=== PATIENT | female | born 1990 | race Caucasian/White ===

== ENCOUNTER 2018-05-31 08:49 | Outpatient (CLI) | payer OTHER, SELFPAY ==
[2018-05-31 09:16] LABS: HCT 35.5 % (36.0-46.0); Mean Corp. HGB Concentration 33.8 g/dL (32.0-36.0); Mean Corpuscular Hemoglobin 30.2 pg (27.0-33.0); Mean Corpuscular Volume 89.4 fL (80-95); Mean Platelet Volume 9.7 fL (8.0-11.0); Platelet Count 247 x1000/uL (130-400); RBC 3.97 m/cumm (4.00-5.20); RBC Distribution Width 12.9 % (11.7-14.6); White Blood Cell Count 10.44 k/cumm (4.4-10.8)
[2018-05-31 09:26] LABS: Glucose,1 Hr (Glucola) 169 mg/dL (80-140)
== END 2018-05-31 09:09 ==
PROVIDERS: PCP Family Medicine; Visit Provider Advanced Practice Midwife
DX: Z34.82 Encounter for supervision of other normal pregnancy, second trimester (principal); Z3A.28 28 weeks gestation of pregnancy
CPT/HCPCS: 36415; 82950; 85027

== ENCOUNTER 2018-06-04 07:56 | Outpatient (CLI) | payer OTHER, SELFPAY ==
[2018-06-04 10:01] LABS: Glucose 1 Hour 161 mg/dL
[2018-06-04 11:45] LABS: Glucose 3 Hour 115 mg/dL
== END 2018-06-04 08:16 ==
PROVIDERS: PCP Family Medicine; Visit Provider Advanced Practice Midwife
DX: Z68.35 Body mass index [BMI] 35.0-35.9, adult (principal); O99.213 Obesity complicating pregnancy, third trimester; Z34.83 Encounter for supervision of other normal pregnancy, third trimester
CPT/HCPCS: 36410; 82951

== ENCOUNTER 2018-06-25 15:41 | Outpatient (CLI) | payer OTHER, SELFPAY ==
[2018-06-25 18:54] LABS: ALT 57 U/L (12-78); AST 28 U/L (15-37); Albumin 2.6 g/dL (3.4-5.0); Alkaline Phosphatase 111 U/L (46-116); Bilirubin, Direct 0.05 mg/dL (0.00-0.20); Bilirubin, Total 0.2 mg/dL (0.2-1.0); Total Protein 6.7 g/dL (6.4-8.2)
[2018-06-26 16:26] LABS: Bile Acids, Total 3 mcmol/L (<=10)
== END 2018-06-25 16:01 ==
PROVIDERS: PCP Family Medicine; Visit Provider Advanced Practice Midwife
DX: Z34.93 Encounter for supervision of normal pregnancy, unspecified, third trimester (principal)
CPT/HCPCS: 36415; 80076; 82239

== ENCOUNTER 2018-07-26 12:06 | Outpatient (REF) | payer OTHER, SELFPAY | END 2018-07-26 12:26 | LOC: LBN 12:06 | PROVIDERS: PCP Family Medicine; Visit Provider Nurse Practitioner | DX: Z34.93 Encounter for supervision of normal pregnancy, unspecified, third trimester (principal); Z36.85 Encounter for antenatal screening for Streptococcus B | CPT/HCPCS: 87081 ==

== ENCOUNTER 2018-08-03 22:49 | Inpatient (IN) | payer OTHER, SELFPAY ==
[2018-08-03 23:32] LABS: ROM Plus Positive
[2018-08-04 01:31] LABS: HCT 38.1 % (36.0-46.0); HGB 12.9 g/dL (12.0-15.5); Mean Corp. HGB Concentration 33.9 g/dL (32.0-36.0); Mean Corpuscular Hemoglobin 29.7 pg (27.0-33.0); Mean Corpuscular Volume 87.6 fL (80-95); Mean Platelet Volume 11.3 fL (8.0-11.0); Platelet Count 195 x1000/uL (130-400); RBC 4.35 m/cumm (4.00-5.20); RBC Distribution Width 13.2 % (11.7-14.6); White Blood Cell Count 12.34 k/cumm (4.4-10.8)
[2018-08-04] MEDS: Lactated Ringers 1,000 ML 125 ML IV (09:50)
--- NOTE | 2018-08-04 11:04 | W.PM.OP ---
Date of service: 08/04/18 Time of Service: 11:05 Operative Note DATE OF PROCEDURE: 08/04/18 PRE-OP DIAGNOSIS: Arrest of Descent POST-OP DIAGNOSIS: same PROCEDURE: VAVD KRISTIAN 28 yo G1 37.3 weeks presented with PROM progressed in labor to fully called when patient had been pushing x 3 hours CNM began Pitocin augmentation at this point Assessed patient FUlly dilated +2LOT 's head rotated to DOA R/B/A VAVD vs PCS discussed with patient verbal consent obtained bladder drained with 16 FR howard of 500 cc 2% lidocaine perineal block of 10 cc vacuum applied with gentle downward traction and maternal pushing infant was delivered atraumatically shoulders and body delivered with ease nuchal cord x 2 tight reduced after delivery cord clamped x 2 cut infant to mother's abdomen cord blood obtained placenta delivered intact 3 vessels- spontaneously fundus firm with massage, pitocin and 800mg cytotec per rectum 0-vicryl repair of second degree laceration in usual fashion sponge and needle count correct viable male infant weight pending skin to skin + cleft lip -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
--- NOTE | 2018-08-04 11:15 | ROE_ITS ---
Date of service: 08/04/18 Time of Service: 11:05 Operative Note DATE OF PROCEDURE: 08/04/18 PRE-OP DIAGNOSIS: Arrest of Descent POST-OP DIAGNOSIS: same PROCEDURE: VAVD KRISTIAN 28 yo G1 37.3 weeks presented with PROM progressed in labor to fully called when patient had been pushing x 3 hours CNM began Pitocin augmentation at this point Assessed patient FUlly dilated +2LOT 's head rotated to DOA R/B/A VAVD vs PCS discussed with patient verbal consent obtained bladder drained with 16 FR howard of 500 cc 2% lidocaine perineal block of 10 cc vacuum applied with gentle downward traction and maternal pushing infant was delivered atraumatically shoulders and body delivered with ease nuchal cord x 2 tight reduced after delivery cord clamped x 2 cut infant to mother's abdomen cord blood obtained placenta delivered intact 3 vessels- spontaneously fundus firm with massage, pitocin and 800mg cytotec per rectum 0-vicryl repair of second degree laceration in usual fashion sponge and needle count correct viable male infant weight pending skin to skin + cleft lip -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
[2018-08-04] MEDS: Lidocaine 2% Pres-Free 5 ML VIAL IJ (13:00)
[2018-08-04] MEDS: Ibuprofen 600 MG TAB PO (16:05)
[2018-08-04] MEDS: Acetaminophen 325 MG TAB 650 MG PO (16:05)
[2018-08-04] MEDS: Hamamelis Leaf/Glycerin 100 EACH BOX PR (16:10)
[2018-08-05 07:20] LABS: HCT 29.4 % (36.0-46.0); HGB 9.7 g/dL (12.0-15.5); Mean Corpuscular Hemoglobin 29.5 pg (27.0-33.0); Mean Corpuscular Volume 89.4 fL (80-95); Mean Platelet Volume 11.2 fL (8.0-11.0); Platelet Count 201 x1000/uL (130-400); RBC 3.29 m/cumm (4.00-5.20); RBC Distribution Width 13.4 % (11.7-14.6); White Blood Cell Count 15.19 k/cumm (4.4-10.8)
[2018-08-05] MEDS: Ibuprofen 600 MG TAB PO (11:44)
[2018-08-05] MEDS: Docusate Sodium 100 MG CAP PO (11:44)
[2018-08-05] MEDS: Acetaminophen 325 MG TAB 650 MG PO (11:45)
[2018-08-06] MEDS: Docusate Sodium 100 MG CAP PO ×3 (00:47→17:20)
[2018-08-06] MEDS: Ibuprofen 600 MG TAB PO ×3 (00:48→17:20)
[2018-08-06] MEDS: Acetaminophen 325 MG TAB 650 MG PO ×2 (00:48→17:19)
== END 2018-08-06 18:00 | disposition home or self-care (01) | DRG 807 ==
PROVIDERS: Obstetrics & Gynecology; Admitting Provider Nurse Practitioner; PCP Family Medicine; Visit Provider Advanced Practice Midwife
DX: O42.02 Full-term premature rupture of membranes, onset of labor within 24 hours of rupture (principal); Z37.0 Single live birth; Z3A.37 37 weeks gestation of pregnancy; O62.1 Secondary uterine inertia; O75.81 Maternal exhaustion complicating labor and delivery; O76 Abnormality in fetal heart rate and rhythm complicating labor and delivery; O63.1 Prolonged second stage (of labor); O69.1XX0 Labor and delivery complicated by cord around neck, with compression, not applicable or unspecified; O99.214 Obesity complicating childbirth; E66.9 Obesity, unspecified
CPT/HCPCS: 36415; 84112; 85027; 86850; 86900; 86901; J3490

== ENCOUNTER 2019-04-30 01:13 | Emergency (ER) | payer OTHER, SELFPAY ==
[2019-04-30] VITALS (8 sets, daily range): BP systolic 124–138; BP diastolic 61–80; PULSE 84–105; RESP 18; TEMP 36.2; O2SAT 97–100
--- NOTE | 2019-04-30 01:42 | ED.GENADUL_ITS ---
Discharge Plan Disposition Patient Disposition: HOME Condition: Good Discharge Details Chief Complaint: Abd Prob Clinical Impression: Biliary colic Primary Care Provider: Rosie Ayala ED Provider: Carmine Guidry Home Meds and New Rx's Prescriptions: No Action (DME) breast pump device See Dose Instructions .ROUTE .MEDSUPPLY Qty: 1 RF: 0 Nexplanon 68 mg implant 1 implant SBD ONCE RF: 0 multivitamin Tablet 1 tab PO DAILY RF: 0 sertraline 50 mg Tablet 50 mg PO DAILY RF: 0 Discharge Instructions Instructions: Biliary Colic (ED), Abdominal Pain (ED) Additional Instructions: At this time your CT scan shows no concerning abnormality per radiology requiring surgery. Your labs are very normal. I feel that your symptoms are secondary to biliary colic as we discussed together. It is very important that you avoid any greasy foods, fatty foods, dairy, or cheese. Please also avoid any spicy foods, tomato-based products or citrus-based products. Please stick with a bland diet for the time being. If you do develop return of your pain please take 600 mg of ibuprofen every 6 hours. Please follow-up with your primary care provider as soon as possible for reassessment. If you notice any worsening of your symptoms, or any new symptoms such as vomiting, diarrhea, fever, chills, shortness of breath, chest pain, numbness, weakness, or fainting , please return immediately to the emergency department for reevaluation. As always, it was a pleasure participating in your medical care today. Referrals: Rosie Ayala [Primary Care Provider] - Medical Decision Making This is a pleasant 29-year-old female who presents today for evaluation of right upper quadrant epigastric pain for the last 4 hours. She did take some Tums at home but this change nothing. She has nausea but no vomiting. Exam demonstrates notable right upper quadrant tenderness. Bedside limited portable ultrasound demonstrates evidence of slightly thickened gallbladder wall roughly 4 to 5 mm. Gallbladder is not overly distended. Concerning pain and Rodgers's point. Differential includes biliary colic, cholecystitis, or mild reflux. We will give GI cocktail, Toradol, morphine fluids, and a CT scan to further evaluate the abdomen, and reassess 2:54 AM Laboratory work-up is notably benign, no white count, normal renal function, normal bilirubin level. Normal AST and ALT. Urinalysis negative for any evidence of infection. CT scan per virtual radiology is negative for acute process. I did contact Dr. Downing specifically reviewed the gallbladder, he denies any significant concerning findings suggestive of acute cholecystitis. On reassessment the patient feels much better, she states that her pain is completely gone her symptoms have resolved. With a benign laboratory work-up, negative CT scan findings, I feel that symptoms are more likely from contracted gallbladder and biliary colic rather than actual acute cholecystitis. At this time with the patient's resolution of symptoms and normal labs I feel she can be safely discharged home but will require close follow-up with her PCP. I did discuss the importance of dietary changes for biliary colic, as well as NSAID use, and as well as reasons and symptoms which to immediately return. I have extensively reviewed the treatment plan and discharge instructions with the patient. I have addressed all patient concerns at this time. The patient was made aware of what symptoms to monitor for that would warrant a return to the emergency department. Discussed the plan with the patient, they demonstrate verbal understanding and agreement with our assessment and plan at this time. FINDINGS: Liver: No suspicious lesions. Gallbladder and bile ducts: No acute or concerning findings. Pancreas: Unremarkable. No ductal dilation. Spleen: No suspicious lesions. Adrenals: Unremarkalbe. No suspicious mass. Kidneys and ureters: Unremarkable. No hydro. No suspicious lesions. Stomach and bowel: Unremarkable. No obstruction or inflammatory changes. Appendix: No evidence of appendicitis. Intraperitoneal space: No free air. No significant fluid collection. Vasculature: Unremarkable. No acute findings Lymph nodes: Unremarkable. Bladder: Unremarkable as visualized. Reproductive: Unremarkable as visualized. Bones/joints: No acute fracture. No dislocation. Soft tissues: Unremarkable. IMPRESSION: No acute findings. Dictated and Authenticated by: Eulalio Downing MD. Ordering:KAITLYNN Lou MD HPI General Date/Time Provider Initiated Documentation: 04/30/19 01:20 . HPI Narrative: This is a pleasant 29-year-old female with no significant past medical history who presents today for evaluation of epigastric pain for the last 4 hours. Pain is in the epigastric and right upper quadrant region. Started not too long after dinner earlier tonight. She describes it as an achy nauseous stabbing and burning-like sensation in that region. She did take some Tums earlier today but this gave no improvement of her symptomatology. She states that she feels that the pain does go to her back slightly. Or so between her shoulder blades. She denies any tearing or ripping sensation. She denies any history of cardiac disease. She denies any shortness of breath or chest pain or chest heaviness. She denies any vomiting but does admit to notable nausea. She has no other complaints at this time. She denies any previous history of symptoms like this Related Data Home Medications Medication Instructions Recorded Confirmed breast pump #1 each 06/14/18 09/25/18 etonogestrel 68 mg subdermal 1 implant SBD ONCE 09/27/18 04/30/19 implant multivitamin 1 tab PO DAILY 04/30/19 04/30/19 sertraline 50 mg PO DAILY 04/30/19 04/30/19 Previous Rx's Medication Instructions Recorded breast pump #1 each 06/14/18 Allergies Allergy/AdvReac Type Severity Reaction Status Date / Time No Known Allergies Allergy Unverified 04/30/19 01:27 General Stated Complaint: Abd Prob CHRISTINA: 3 Review of Systems Review of Systems All systems reviewed & are unremarkable except as noted in HPI and below PFSH Medical History (Updated 05/31/18 @ 09:32 by Chel Bowser RN) Hypertension Family History (Updated 01/15/18 @ 16:24 by Nina Santoro MD) Other Diabetes Social History (Updated 05/30/18 @ 09:49 by Iraida Bond LPN) Smoking/Tobacco Use Status: Never Alcohol Intake: current Alcohol Intake frequency: a few times a month Details: none pt. Drug use: Never Substance use type: does not use Adopted: No Foster care: No Household members: spouse Pets and animals: Yes (2 cats) What is your relationship status?: Panel score (0-1 are the most socially isolated patients): 1 Analisa/Mandaeism: evangelica Special analisa needs: No Do you feel safe at home: Yes Do you feel safe in your relationship?: Yes History History 1 Para 1 Hx # Term Pregnancies 1 Multiple births 0 Hx # Pregnancies 0 Ectopic pregnancies 0 AB induced 0 Hx Number of Living Children 1 AB spontaneous 0 Past Pregnancies Del. Date GA/Weeks # Outcome Route Wgt Sex Labor Lgth Anesthes ia Location Prov Complic 08/04/18 37 No Successful vaginal 3.147 kg Male 12 hours 28 minutes Evette Huang CNM Exam Narrative Exam Narrative: 1.Const: Well-nourished, Well-developed, appearing stated age 2.Eyes: PERRL, no conjunctival injection, and symmetrical lids. 3.ENT: Atraumatic external nose and ears. Moist MM. Neck: Symmetric, trachea midline, No thyromegaly. 4.CVS: +S1/S2, No murmurs or gallops. Peripheral pulses 2+ and equal in all extremities. Brisk capillary refill in all extremities. 5.RESP: Unlabored respiratory effort. Clear to auscultation bilaterally. No wheezes rales or rhonchi 6.GI: Soft, nondistended, notable tenderness in the right upper quadrant mild tenderness in the epigastric region. No pain in the right lower quadrant. Positive Rodgers sign. No pain at McBurney's point. No CVA tenderness. Bedside limited ultrasound demonstrates gallbladder wall 4 to 5 mm in thickness. No gallstones or sludge 7.MSK: Normocephalic/Atraumatic, Extremities w/o deformity or ttp No cyanosis or clubbing, Normal movement of all extremities 8.Skin: Warm, Dry. No rashes or lesions. 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 Sensation grossly intact, no focal neurologic deficits. 10.Psych: (AAO) x3. Appropriate mood and affect Course Vital Signs Temperature 36.2 C L 04/30/19 01:19 Pulse 105 H 04/30/19 01:19 Respiratory Rate 18 04/30/19 01:19 Blood Pressure 138/80 04/30/19 01:19 Pulse Oximetry 100 04/30/19 01:19 Temperature 36.2 C L 04/30/19 01:19 Pulse 105 H 04/30/19 01:19 Respiratory Rate 18 04/30/19 01:19 Respiratory Effort Non-Labored 04/30/19 01:27 Blood Pressure 138/80 04/30/19 01:19 Pulse Oximetry 100 04/30/19 01:19 Oxygen Delivery Method Room Air 04/30/19 01:19 Oxygen Flow Rate 0 04/30/19 01:19 Pain Level 6 04/30/19 01:27
[2019-04-30 01:55] LABS: Bilirubin Negative (Negative); Blood Negative (Negative); Clarity Sl Cloudy (Clear); Glucose Negative (Negative); Ketones Negative (Negative); Leukocyte Esterase Negative (Negative); Nitrite Negative (Negative); Urobilinogen 0.2 EU/dL (Up TO 0.2)
[2019-04-30 01:57] LABS: Abs Immature Grans 0.01 k/cumm (0.0-0.09); Absolute Basophil Count 0.02 k/cumm (0.0-0.2); Absolute Eosinophil Count 0.06 k/cumm (0.0-0.7); Absolute Lymphocyte Count 3.23 k/cumm (1.2-3.4); Absolute Neutrophil Count 5.77 k/cumm (1.2-6.7); Basophils % 0.2; Eosinophils % 0.6; HCT 41.4 % (36.0-46.0); HGB 13.3 g/dL (12.0-15.5); Immature Grans % 0.1; Lymphocytes % 33.3; Mean Corp. HGB Concentration 32.1 g/dL (32.0-36.0); Mean Corpuscular Hemoglobin 26.8 pg (27.0-33.0); Mean Corpuscular Volume 83.5 fL (80-95); Mean Platelet Volume 8.9 fL (8.0-11.0); Monocytes % 6.2; Neutrophils % 59.6; Platelet Count 366 x1000/uL (130-400); RBC 4.96 m/cumm (4.00-5.20); RBC Distribution Width 13.8 % (11.7-14.6); White Blood Cell Count 9.69 k/cumm (4.4-10.8)
[2019-04-30] MEDS: Ketorolac 15 MG/ML VIAL IVP (02:04)
[2019-04-30] MEDS: Normal Saline Flush 10 ML SYR IVP (02:05)
[2019-04-30 02:12] LABS: ALT 26 U/L (12-78); AST 10 U/L (15-37); Albumin 3.6 g/dL (3.4-5.0); Alkaline Phosphatase 101 U/L (46-116); Anion Gap 9.9 mmol/L (3-11); BUN 19 mg/dL (7-18); Bilirubin, Total 0.2 mg/dL (0.2-1.0); CO2 28.1 mmol/L (21.0-32.0); CREATININE 0.93 mg/dL (0.55-1.02); Chloride 102 mmol/L (98-107); Glucose 103 mg/dL (70-100); Lipase 123 U/L (73-393); Potassium 3.6 mmol/L (3.5-5.1); Sodium 140 mmol/L (136-145)
--- NOTE | 2019-04-30 02:30 | DI.CT_ITS ---
SYMPTOM/DIAGNOSIS: RUQ PAIN, CONSTIPATION, NAUSEA ABDOMEN AND PELVIC CT: CT examination of the abdomen and pelvis was performed with a bolus infusion of 100 cc's of Omnipaque 350. Images obtained through the lung bases are unremarkable. Liver, spleen and pancreas appear normal. Gallbladder and bile ducts are CT normal. Abdominal aorta is of normal diameter and no major vascular abnormality is seen. No abdominal or pelvic adenopathy apart from some mildly prominent mesenteric lymph nodes in the right lower quadrant. Appendix is normal. No evidence of diverticulitis or bowel obstruction. Adrenals and kidneys appear normal. No urinary tract calcification or obstruction. 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 CONCLUSION: No evidence of acute intra-abdominal process.
[2019-04-30] MEDS: Normal Saline 1,000 ML 1000 ML IV (02:36)
[2019-04-30] MEDS: Omnipaque 350 MG/ML 100 ML BTL IJ (02:36)
--- NOTE | 2019-04-30 02:39 | DI.VRAD_ITS ---
EXAM: CT Abdomen and Pelvis With Contrast EXAM DATE/TIME: 04/30/2019 1:36 AM CLINICAL HISTORY: 29 years old, female; Abdominal pain; Localized; Left upper quadrant (luq); Patient HX: Ruq pain and nausea starting last evening. TECHNIQUE: Imaging protocol: Computed tomography images of the abdomen and pelvis with intravenous contrast. Radiation optimization: All CT scans at this facility use at least one of these dose optimization techniques: automated exposure control; mA and/or kV adjustment per patient size (includes targeted exams where dose is matched to clinical indication); or iterative reconstruction. Contrast material: OMNIPAQUE 350; Contrast volume: 100 ml; Contrast route: IV; COMPARISON: OB US 2-3 TRI TRANSABD 03/27/2018 1:41 PM FINDINGS: Liver: No suspicious lesions. Gallbladder and bile ducts: No acute or concerning findings. Pancreas: Unremarkable. No ductal dilation. Spleen: No suspicious lesions. Adrenals: Unremarkalbe. No suspicious mass. Kidneys and ureters: Unremarkable. No hydro. No suspicious lesions. Stomach and bowel: Unremarkable. No obstruction or inflammatory changes. Appendix: No evidence of appendicitis. Intraperitoneal space: No free air. No significant fluid collection. Vasculature: Unremarkable. No acute findings Lymph nodes: Unremarkable. Bladder: Unremarkable as visualized. Reproductive: Unremarkable as visualized. Bones/joints: No acute fracture. No dislocation. Soft tissues: Unremarkable. IMPRESSION: No acute findings. Dictated and Authenticated by: Eulalio Downing MD. Ordering:KAITLYNN Lou MD
== END 2019-04-30 03:06 | disposition home or self-care (01) ==
PROVIDERS: Emergency Provider Student in an Organized Health Care Education/Training Program; PCP Family Medicine
DX: R10.13 Epigastric pain (principal); R11.0 Nausea; K80.80 Other cholelithiasis without obstruction; I10 Essential (primary) hypertension
CPT/HCPCS: 36415; 80053; 81025; 83690; 96374; 99285; 74177; 81003; 85025; J1885; J2270; J2405; J3490

== ENCOUNTER 2019-05-09 12:23 | Outpatient (CLI) | payer OTHER, SELFPAY ==
--- NOTE | 2019-05-09 12:00 | NS.NUTBLAN_ITS ---
DESCRIPTION: Camelia Barnett presents for nutrition consult for obesity by her employer [employer]. She has had questions possible gall bladder concern and seeks a low fat diet. She has tried different weight loss plans including [employer] with 20-30 pound weight loss, and increased exercise doing the couch ->5k. Current food plan is sweetened iced coffee on the way to work; bagel or 2 instant oatmeal packages. Lunch is meat, vegetable or salad; today BLT with avocado salad. She does snack on munchkins or chips/dip during her 1 hour commute twice a day. Has salad or granola bar for supper, and popcorn in the evening and does eat cookies at work. Camelia admits she dislikes cooking. She is currently not working out although there is a gym, walking path and stairs at work. ASSESSMENT/INTERVENTION: Camelia is inactive and is eating high calorie foods in a distracted environment. Discussed ?how she eats? reviewing some mindful eating practices including assessing hunger/fullness and motivation to eat more than expending. Discussed quality of food choices. Discussed alternatives to cooking meals at home. Discussed physical activity incorporated into her work day. PLAN: Camelia will look into [employer] meals; have veggies and dip on way home from work; consider hunger level prior to eating. She will consider using the stairs once a day. She wishes to return in 1 month for follow up.
== END 2019-05-09 12:43 ==
PROVIDERS: PCP Family Medicine; Visit Provider Dietitian, Registered
DX: E66.8 Other obesity (principal); Z71.3 Dietary counseling and surveillance
CPT/HCPCS: 97802

== ENCOUNTER 2019-05-19 00:32 | Outpatient (CLI) | payer OTHER, SELFPAY ==
--- NOTE | 2019-05-19 08:10 | DI.US_ITS ---
SYMPTOM/DIAGNOSIS: POST PRANDIAL RUQ PAIN R10.11 ABDOMINAL ULTRASOUND: 05/19 The visualized liver parenchyma is normal in appearance. Note is made of cholelithiasis with a 15 mm gallstone in the gallbladder fundus. No biliary dilatation is seen. Pancreas appears intact as visualized. The kidneys are unremarkable in appearance with no evidence of hydronephrosis or nephrolithiasis. Abdominal aorta and IVC are of normal diameter. CONCLUSION: Cholelithiasis, no evidence of gallbladder wall thickening or pericholecystic fluid collection to suggest acute inflammatory process.
== END 2019-05-19 00:52 ==
PROVIDERS: PCP Family Medicine
DX: R10.11 Right upper quadrant pain (principal); K80.20 Calculus of gallbladder without cholecystitis without obstruction
CPT/HCPCS: 76700

== ENCOUNTER 2019-05-29 01:53 | Outpatient (CLI) | payer OTHER, SELFPAY ==
--- NOTE | 2019-05-29 09:00 | NS.NUTBLAN_ITS ---
DESCRIPTION: Camelia Barnett presents for nutrition follow up for weight management. She reports 5 pound weight loss over past 3 weeks. She tracks her food with [employer] and is having [id number] calories/day with 70g fat above her goal of 50-60 grams fat. She has also switched her coffee to regular and is drinking flavored water in place of soda. She has a water bottle on her commute. At work she is having frozen protein bowls at 300 calories and 15grams protein. She is eating 2 eggs daily as snacks. She does crave chocolate but is eating dried prunes as her sweet. She admits to stress eating but states she has had no binge episodes. She reports high stress with changing jobs and being away form home for possibly extended periods of time. 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 She admits she does not have a social douglas or support. She has taken the stairs at work a couple of times and has set up her treadmill. ASSESSMENT/INTERVENTION: Camelia has done well making changes to her food and physical activity. She now reports that depression is setting in and fears this may all fall apart. Discussed options, motivations, ways to prioritize what needs to be done. Discussed ways to communicate with about stressors. Discussed ways to find social support. PLAN: Camelia will: buy in portions; have fruit in afternoon on way home; 5 vegetable servings per day; walk in parking lot at lunch; use treadmill or walk 40 minutes; snack on dark chocolate almonds
== END 2019-05-29 02:13 ==
PROVIDERS: PCP Family Medicine; Visit Provider Dietitian, Registered
DX: E66.9 Obesity, unspecified (principal); Z71.3 Dietary counseling and surveillance
CPT/HCPCS: 97803

== ENCOUNTER 2019-06-27 00:20 | Outpatient (CLI) | payer OTHER, SELFPAY ==
--- NOTE | 2019-06-27 09:00 | NS.NUTBLAN_ITS ---
DESCRIPTION: Camelia Barnett presents for nutrition follow up for obesity with the goal of weight loss. She had intention to walk at lunch and use the treadmill or walk 40 minutes on the weekend and to snack on dark chocolate almonds rather than sweets. States she is having no stomach pain despite a couple of times eating high fat food. 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 She is highly stressed and reverted back to comfort food including bagels and Lebanese fries. She admits she is depressed and believes she would benefit from going to a counselor before attempting weight loss and I support this decision without reservation. INTERVENTION: Discussed accessing counseling services; stress management in the meantime. PLAN: She agrees to ask for help with the house on the weekend. She will call a previous counselor as a start.
== END 2019-06-27 00:40 ==
PROVIDERS: PCP Family Medicine; Visit Provider Dietitian, Registered
DX: E66.9 Obesity, unspecified (principal); Z71.3 Dietary counseling and surveillance
CPT/HCPCS: 97803

== ENCOUNTER 2019-08-27 01:59 | Emergency (ER) | payer OTHER, SELFPAY ==
[2019-08-27 02:03] VITALS: BP 123/68; PULSE 90; RESP 16; TEMP 36.5; O2SAT 99
--- NOTE | 2019-08-27 02:14 | ED.GENADUL_ITS ---
Discharge Plan Disposition Patient Disposition: HOME Condition: Good Discharge Details Chief Complaint: Abd Prob Clinical Impression: Upper abdominal pain Primary Care Provider: Rosie Ayala ED Provider: Sandoval Pressley Meds and New Rx's Prescriptions: New pantoprazole 40 mg tablet,delayed release (DR/EC) 40 mg PO DAILY Qty: 30 RF: 0 Continued Nexplanon 68 mg implant 1 implant SBD ONCE RF: 0 sertraline 50 mg Tablet 50 mg PO DAILY RF: 0 Discontinued (DME) breast pump device See Dose Instructions .ROUTE .MEDSUPPLY Qty: 1 RF: 0 Discharge Instructions Instructions: Abdominal Pain (ED) Additional Instructions: It may be that this pain is acid related and not biliary colic. Tonight's pain most likely is not biliary colic as it is left-sided not right. Laboratory studies are normal. We will start you on medication for acid reduction. [place] diet for a few days. Follow-up with primary care in 1 to 2 weeks. Consider referral to surgery for endoscopy if continued problems. Return to ED for fever, new or worsening pain, vomiting, other concerns. Referrals: Rosie Ayala [Primary Care Provider] - Medical Decision Making Patient presenting with epigastric and left upper quadrant pain that she assumed was biliary colic as she has had that previously. However, the pain is been on the right side. Her abdomen is essentially benign. Her vital signs are normal. I suspect that this is likely more acid related stomach pain than biliary colic. Will place IV and check labs including lipase since she does complain of pain into the back. Will treat with Reglan, Pepcid, GI cocktail. 03:40 - Patient's pain has resolved. She feels much better. Laboratory studies are unremarkable. Liver function and lipase are normal. Suspect tonight's pain is acid related. Maybe has been all along the gallstones are asymptomatic. We will start her on PPI and refer to primary care. Consider referral to surgery for endoscopy to determine acid related disease versus biliary colic. Return to ED for fever, worsening pain, vomiting, other concerns or problems. Medical Records Medical records reviewed: Yes I reviewed the patient's medical records. Lab Data Lab results reviewed: Yes I reviewed the patient's lab results. HPI General Mode of arrival: ambulatory . Date/Time Provider Initiated Documentation: 08/27/19 02:11 . Limitations to Documentation: no limitations . Information obtained by: patient, RN notes reviewed and old records reviewed . HPI Narrative: Patient presents to ED with epigastric/left upper quadrant pain with associated nausea but no vomiting. Symptoms started a few hours ago. She has been evaluated for similar pain in the epigastric and right upper quadrant. This pain feels similar but is on the left side not the right. She has no chest pain or shortness of breath. Pain does radiate into the left upper lumbar area. She has no urinary symptoms, diarrhea, fever. She assumed that it was biliary colic and has taken ibuprofen and Tums. Related Data Home Medications Medication Instructions Recorded Confirmed etonogestrel 68 mg subdermal 1 implant SBD ONCE 09/27/18 08/27/19 implant sertraline 50 mg PO DAILY 04/30/19 04/30/19 pantoprazole 40 mg PO DAILY #30 tab 08/27/19 Previous Rx's Medication Instructions Recorded pantoprazole 40 mg PO DAILY #30 tab 08/27/19 Allergies Allergy/AdvReac Type Severity Reaction Status Date / Time No Known Allergies Allergy Unverified 08/27/19 02:07 General Stated Complaint: Abd Prob CHRISTINA: 3 Review of Systems Narrative: As documented in HPI otherwise negative as below. Const: no fever, chills, weakness Resp: no cough, SOB, pleuritic pain CV: no CP, diaphoresis, edema, syncope GI: abdominal pain, nausea; no vomiting, diarrhea Neuro: no headache, numbness, focal weakness, confusion PFSH Medical History No active medical problems (Acute) Family History (Updated 01/15/18 @ 16:24 by Nina Santoro MD) Other Diabetes Social History Smoking/Tobacco Use Status: Never Alcohol Intake: current Alcohol Intake frequency: a few times a month Details: none pt. Drug use: Never Substance use type: does not use Adopted: No Foster care: No Household members: spouse Pets and animals: Yes (2 cats) What is your relationship status?: Panel score (0-1 are the most socially isolated patients): 1 Analisa/Restoration: evangelica Special analisa needs: No Do you feel safe at home: Yes Do you feel safe in your relationship?: Yes History History 1 Para 1 Hx # Term Pregnancies 1 Multiple births 0 Hx # Pregnancies 0 Ectopic pregnancies 0 AB induced 0 Hx Number of Living Children 1 AB spontaneous 0 Past Pregnancies Del. Date GA/Weeks # Outcome Route Wgt Sex Labor Lgth Anesthes ia Location Prov Complic 08/04/18 37 No Successful vaginal 3.147 kg Male 12 hours 28 minutes Evette Huang CNM Exam Narrative Exam Narrative: Vitals: Afebrile. Normal vital signs and room air pulse ox. Const: WDWN female in NAD. HEENT: NC/AT. Normal facial exam. Eyes: Normal conjunctiva and sclera. Neck: Supple. Trachea midline. Lungs: Normal respiratory effort. Lungs are clear. Cor: RRR without murmur/gallop. Good radial pulses. GI: Soft and nondistended. Minimal tenderness without guarding or rebound in the upper abdomen. Back: No CVAT. Neuro: A+O x 3. CN grossly in tact. Good strength and no focal deficit. Ext: No C/C/E. Skin: Warm and dry without rash. Course Vital Signs Vital signs: Vital Signs Temperature 97.7 F 08/27/19 02:03 Pulse 90 08/27/19 02:03 Respiratory Rate 16 08/27/19 02:03 Blood Pressure 123/68 08/27/19 02:03 Pulse Oximetry 99 08/27/19 02:03 Temperature 97.7 F 08/27/19 02:03 Temperature Source Skin 08/27/19 02:03 Pulse 90 08/27/19 02:03 Respiratory Rate 16 08/27/19 02:03 Respiratory Effort Non-Labored 08/27/19 02:08 Blood Pressure 123/68 08/27/19 02:03 Blood Pressure Position Sitting 08/27/19 02:03 Pulse Oximetry 99 08/27/19 02:03 Oxygen Delivery Method Room Air 08/27/19 02:03 Oxygen Flow Rate 0 08/27/19 02:03 Pain Level 6 08/27/19 02:03
[2019-08-27] MEDS: Metoclopramide 10 MG/2 ML VIAL IVP (02:40)
[2019-08-27] MEDS: FAMOTIDINE 20 MG/50 ML BAG 100 MG IVPB (02:43)
[2019-08-27 03:06] LABS: Abs Immature Grans 0.02 k/cumm (0.0-0.09); Absolute Basophil Count 0.02 k/cumm (0.0-0.2); Absolute Eosinophil Count 0.04 k/cumm (0.0-0.7); Absolute Lymphocyte Count 2.44 k/cumm (1.2-3.4); Absolute Monocyte Count 0.61 k/cumm (0.11-0.7); Absolute Neutrophil Count 6.36 k/cumm (1.2-6.7); Basophils % 0.2; Eosinophils % 0.4; HCT 40.3 % (36.0-46.0); Immature Grans % 0.2; Lymphocytes % 25.7; Mean Corp. HGB Concentration 32.3 g/dL (32.0-36.0); Mean Corpuscular Hemoglobin 26.9 pg (27.0-33.0); Mean Corpuscular Volume 83.4 fL (80-95); Mean Platelet Volume 8.9 fL (8.0-11.0); Monocytes % 6.4; Neutrophils % 67.1; Platelet Count 323 x1000/uL (130-400); RBC 4.83 m/cumm (4.00-5.20); RBC Distribution Width 14.3 % (11.7-14.6); White Blood Cell Count 9.49 k/cumm (4.4-10.8)
[2019-08-27 03:35] LABS: ALT 20 U/L (14-59); AST 17 U/L (15-37); Albumin 3.4 g/dL (3.4-5.0); Alkaline Phosphatase 85 U/L (46-116); Anion Gap 8.7 mmol/L (3-11); BUN 20 mg/dL (7-18); Bilirubin, Total 0.2 mg/dL (0.2-1.0); CO2 25.3 mmol/L (21.0-32.0); CREATININE 0.91 mg/dL (0.55-1.02); Calcium 8.7 mg/dL (8.5-10.1); Chloride 106 mmol/L (98-107); Glucose 123 mg/dL (74-106); Lipase 97 U/L (73-393); Sodium 140 mmol/L (136-145); Total Protein 7.4 g/dL (6.4-8.2)
[2019-08-27 03:51] VITALS: BP 119/66; PULSE 81; RESP 16; TEMP 36.5; O2SAT 99
== END 2019-08-27 03:55 | disposition home or self-care (01) ==
PROVIDERS: Emergency Provider Emergency Medicine; PCP Family Medicine
DX: R10.12 Left upper quadrant pain (principal); R10.13 Epigastric pain
CPT/HCPCS: 36415; 80053; 81025; 83690; 96374; 96375; 99284; 85025; J2765

== ENCOUNTER 2019-11-24 18:35 | Emergency (ER) | payer OTHER, SELFPAY ==
[2019-11-24 18:42] VITALS: BP 157/82; PULSE 89; RESP 18; TEMP 36.5; O2SAT 100
--- NOTE | 2019-11-24 18:49 | ED.GENADUL_ITS ---
Discharge Plan Disposition Patient Disposition: HOME Condition: Improving Discharge Details Chief Complaint: Abd Prob Clinical Impression: Acute epigastric pain Primary Care Provider: Rosie Aayla ED Provider: Kimmie Hightower Home Meds and New Rx's Prescriptions: New sucralfate [Carafate] 1 gram tablet 1 gm PO QACHS Qty: 60 RF: 0 Continued Nexplanon 68 mg implant 1 implant SBD ONCE RF: 0 pantoprazole 40 mg tablet,delayed release (DR/EC) 40 mg PO DAILY Qty: 30 RF: 0 sertraline 50 mg Tablet 50 mg PO DAILY RF: 0 No Action acetaminophen [Tylenol] 325 mg tablet 325 mg PO Q6H PRN (Reason: fever or pain) Qty: 90 RF: 0 ibuprofen 600 mg tablet 600 mg PO Q6H PRN (Reason: fever or pain) Qty: 60 RF: 0 oxycodone 5 mg tablet 5 mg PO Q6H PRN (Reason: pain) Qty: 14 RF: 0 Discharge Instructions Instructions: Abdominal Pain (ED) Additional Instructions: Encourage water intake. Please take the pantoprazole and Carafate as prescribed. Referral for general surgery has been placed. Please call tomorrow to schedule follow-up appointment, number listed below. Would also like for you to have an outpatient ultrasound prior to meeting with them. Outpatient ultrasound will call you tomorrow morning, if you do not hear from them please call tomorrow afternoon to schedule appointment. Please avoid oral anti- inflammatories. You may use Tylenol Mylanta as needed for discomfort. If you develop fever/chills, increased pain, inability stay hydrated or other new/worsening symptom please seek care urgently once again. Referrals: Rosie Ayala [Primary Care Provider] - Fanta Waters MD [ [facility] STAFF PHYSICIAN] - Discharge Data Discharge Date/Time-TO BE ENTERED AT DEPARTURE: 11/24/19 22:35 Medical Decision Making Patient is a pleasant 29-year-old female presenting today with chief complaint of epigastric and right upper quadrant abdominal pain. He has been here 2 other times with similar complaints, at one point the pain seemed to be more in the right side, the following time with similar minor left side. She reports that she is had 4 total bouts of this discomfort. States it is always linked to having eaten fatty or spicy food. States that typically her pain comes on 6 hours after ingestion. However, states that today she had sudden onset of pain 4 hours after eating a salad with spicy dressing. Denies any nausea vomiting. No change in bowel habits. Denies any fevers or chills. States that the pain has been gnawing. Reports the pain does radiate into her back and knee. Patient has had ultrasound as well as CT imaging historically. US was in 05/29 at which time cholelithiasis was noted but no evidence of GB wall thiceking or pericholecystic fluid to suggest acute inlammatory process. When she was here most recently, the pain was maximal on the LUQ and epigastric, she responded well to GI cocktail. At that time it was thought that the patient may have had gastritis. Has since be referred to GI, reports f/u appointment in 2 months. On exam, she appears uncomfortable but nontoxic. Afebrile, HR 89. Lungs clear, normal cardiac exam. She has tenderness in epigastric area and RUQ. Patient received Pepcid and GI cocktail with improvement in symptoms. She now endorsing some mild nausea. Plan to give IV ondansetron as well as IV acetaminophen to help with her discomfort. Labs reviewed. Patient does have a mild white count of 12.9. Labs otherwise without significant abnormality. Lipase is normal. Patient continues to have severe discomfort, plan to obtain CT for further evaluation. FINDINGS: Liver: Normal. No mass. Gallbladder and bile ducts: Normal. No calcified stones. No ductal dilation. Pancreas: Normal. No ductal dilation. Spleen: Normal. No splenomegaly. Adrenals: Normal. No mass. Kidneys and ureters: Normal. No hydronephrosis. Stomach and bowel: Unremarkable. No obstruction. No mucosal thickening. Appendix: A normal appendix is identified. Intraperitoneal space: Unremarkable. No free air. No significant fluid collection. Vasculature: Unremarkable. No abdominal aortic aneurysm. Lymph nodes: Unremarkable. No enlarged lymph nodes. Bladder: Unremarkable as visualized. Reproductive: Unremarkable as visualized. Bones/joints: Unremarkable. No acute fracture. Soft tissues: There is a small fat-containing umbilical hernia. IMPRESSION: No acute abnormality. Discussed these findings with the patient. She is feeling improved. She received GI cocktail, Toradol, Pepcid and acetaminophen. She did receive 1 L of fluids. She has had no recurrence of her nausea. Pain is improved. At this point, is unclear if it is the gallbladder or possible gastritis that could be causing his her symptoms. Feel a follow-up with general surgery would be appropriate for further evaluation as well as a repeat outpatient ultrasound as a last was completed last fall. I do not see any evidence of surgical abdomen and exam or imaging. She was given strict return precautions. She will contact general surgeon tomorrow to schedule follow-up appointment. All of her questions and concerns were addressed and she is agreement this plan. Patient also endorsed a large amount of stress we did discuss reduction techniques as well as dietary changes to help reduce recurrence of symptoms. HPI General Mode of arrival: ambulatory . Date/Time Provider Initiated Documentation: 11/24/19 18:49 . Limitations to Documentation: no limitations . Information obtained by: patient and RN notes reviewed . History of Present Illness 29 year old F presents to the emergency department with the chief complaint of epigastric pain, described as moderate and similar to prior episodes, with intensity rated at 8. Quality is described as aching, and is localized to the abdomen. Patient reports radiation to back. Patient started experiencing this hour(s) and it has been constant. No relieving factors improve symptom(s), Eating worsens symptoms . Patient notes no other symptoms.. Patient did receive the following treatments prior to arrival, none Related Data Home Medications Medication Instructions Recorded Confirmed etonogestrel 68 mg subdermal 1 implant SBD ONCE 09/27/18 11/26/19 implant sertraline 50 mg PO DAILY 04/30/19 11/28/19 pantoprazole 40 mg PO DAILY #30 tab 08/27/19 11/28/19 sucralfate [Carafate] 1 gm PO QACHS #60 tab 11/24/19 11/25/19 acetaminophen [Tylenol] 325 mg PO Q6H PRN #90 tab 11/28/19 ibuprofen 600 mg PO Q6H PRN #60 tab 11/28/19 oxycodone 5 mg PO Q6H PRN #14 tab 11/28/19 Previous Rx's Medication Instructions Recorded pantoprazole 40 mg PO DAILY #30 tab 08/27/19 sucralfate [Carafate] 1 gm PO QACHS #60 tab 11/24/19 acetaminophen [Tylenol] 325 mg PO Q6H PRN #90 tab 11/28/19 ibuprofen 600 mg PO Q6H PRN #60 tab 11/28/19 oxycodone 5 mg PO Q6H PRN #14 tab 11/28/19 Allergies Allergy/AdvReac Type Severity Reaction Status Date / Time No Known Allergies Allergy Unverified 11/28/19 06:32 General Stated Complaint: Abd Prob CHRISTINA: 3 Review of Systems Constitutional Constitutional: Reports as per HPI, Denies chills, Denies fatigue, Denies fever(s) and Denies headache(s) ENT Ears, Nose, Mouth, and Throat: Denies headache(s) Cardiovascular Cardiovascular: Reports as per HPI, Denies chest pain and Denies dyspnea Respiratory Respiratory: Reports as per HPI, Denies cough and Denies dyspnea Gastrointestinal Gastrointestinal: Reports as per HPI Musculoskeletal Musculoskeletal: Reports as per HPI and Denies back pain Integumentary/Breasts Skin/Breast: Reports as per HPI and Denies rash Neurologic Neurologic: Reports as per HPI and Denies headache(s) Endocrine Endocrine: Denies fatigue PFSH Medical History No active medical problems (Acute) Social History Smoking/Tobacco Use Status: Never Alcohol Intake: current Alcohol Intake frequency: a few times a month Alcohol type: beer Details: none pt. Drug use: Never Substance use type: does not use Adopted: No Foster care: No Household members: spouse Pets and animals: Yes (2 cats) What is your relationship status?: Panel score (0-1 are the most socially isolated patients): 1 Analisa/Muslim: [email or web address] Special analisa needs: No Do you feel safe at home: Yes Do you feel safe in your relationship?: Yes History History 1 Para 1 Hx # Term Pregnancies 1 Multiple births 0 Hx # Pregnancies 0 Ectopic pregnancies 0 AB induced 0 Hx Number of Living Children 1 AB spontaneous 0 Past Pregnancies Del. Date GA/Weeks # Outcome Route Wgt Sex Labor Lgth Anesthes ia Location Prov Complic 08/04/18 37 No Successful vaginal 3.147 kg Male 12 hours 28 minutes Evette Huang CNM Exam Const General: cooperative, healthy appearing, comfortable, no acute distress and well developed Nutritional Appearance: well nourished and overweight Orientation: alert and awake HENMT Head: normal to inspection Mouth: moist mucous membranes Resp Effort & Inspection: normal respiratory effort, able to speak in complete sentences and no respiratory distress Auscultation: clear to auscultation bilaterally, no rales, no rhonchi and no wheezes Cardio Rate: regular rate Rhythm: regular rhythm Heart Sounds: S1 normal and S2 normal GI Inspection: normal to inspection, no abdominal wall ecchymosis, no edema, non-distended and no visible herniation Palpation: soft, no hepatosplenomegaly, not firm, no guarding, no hepatosplenomegaly, not rigid and tender in the epigastrum, in the RUQ and Rodgers's sign positive; with no rebound tenderness Percussion: normal to percussion Auscultation: normal bowel sounds Back/Spine/Pelvis Back: no CVA tenderness Skin General skin exam: no rashes or lesions noted Trauma: no lacerations or abrasions Neuro General: patient alert and patient awake Cognition: normal cognition Speech: speech normal Gait: normal gait Psych Appearance: grossly normal and well kempt Mental Status: mental status grossly normal Speech and Movement: speech and movement normal Course Vital Signs Vital signs: Vital Signs Temperature 36.5 C 11/24/19 18:42 Pulse 89 11/24/19 18:42 Respiratory Rate 18 11/24/19 18:42 Blood Pressure 157/82 H 11/24/19 18:42 Pulse Oximetry 100 11/24/19 18:42 Temperature 36.5 C 11/24/19 18:42 Temperature Source Temporal Artery Scan 11/24/19 18:42 Pulse 89 11/24/19 18:42 Respiratory Rate 18 11/24/19 18:42 Blood Pressure 157/82 H 11/24/19 18:42 Blood Pressure Position Sitting 11/24/19 18:42 Pulse Oximetry 100 11/24/19 18:42 Oxygen Delivery Method Room Air 11/24/19 18:42 Oxygen Flow Rate 0 11/24/19 18:42 Pain Level 8 11/24/19 18:42
[2019-11-24] MEDS: Famotidine 20 MG TAB 40 MG PO (19:20)
[2019-11-24 19:22] LABS: Abs Immature Grans 0.03 k/cumm (0.0-0.09); Absolute Eosinophil Count 0.04 k/cumm (0.0-0.7); Absolute Lymphocyte Count 2.47 k/cumm (1.2-3.4); Absolute Monocyte Count 0.77 k/cumm (0.11-0.7); Basophils % 0.2; Eosinophils % 0.3; HCT 40.7 % (36.0-46.0); HGB 13.3 g/dL (12.0-15.5); Immature Grans % 0.2 %; Mean Corp. HGB Concentration 32.7 g/dL (32.0-36.0); Mean Corpuscular Hemoglobin 26.9 pg (27.0-33.0); Mean Corpuscular Volume 82.4 fL (80-95); Mean Platelet Volume 9.5 fL (8.0-11.0); Monocytes % 5.9; Neutrophils % 74.4; Platelet Count 350 x1000/uL (130-400); RBC 4.94 m/cumm (4.00-5.20); RBC Distribution Width 13.6 % (11.7-14.6); White Blood Cell Count 12.98 k/cumm (4.4-10.8)
[2019-11-24 19:24] LABS: Absolute Basophil Count 0.03 k/cumm (0.0-0.2); Absolute Neutrophil Count 9.66 k/cumm (1.2-6.7)
[2019-11-24 19:33] LABS: Lipase 103 U/L (73-393)
[2019-11-24 19:38] LABS: ALT 30 U/L (14-59); AST 21 U/L (15-37); Albumin 3.9 g/dL (3.4-5.0); Alkaline Phosphatase 100 U/L (46-116); Anion Gap 11.5 mmol/L (3-11); BUN 19 mg/dL (7-18); Bilirubin, Total 0.3 mg/dL (0.2-1.0); CO2 26.5 mmol/L (21.0-32.0); CREATININE 1.02 mg/dL (0.55-1.02); Chloride 101 mmol/L (98-107); Glucose 106 mg/dL (74-106); Potassium 3.6 mmol/L (3.5-5.1); Sodium 139 mmol/L (136-145); Total Protein 8.3 g/dL (6.4-8.2)
[2019-11-24] MEDS: Omnipaque 350 MG/ML 100 ML BTL IJ (20:06)
--- NOTE | 2019-11-24 20:10 | DI.CT_ITS ---
EXAM: CT ABDOMEN PELVIS W CLINICAL HISTORY: RUQ and epigastric pain, ?cholecystitis TECHNIQUE: Imaging Protocol: Axial computed tomography images with coronal and sagittal reformatted images were created and reviewed CONTRAST MATERIAL: Intravenous: Omnipaque 350 Contrast volume:100 mL Oral: No COMPARISON: CT ABDOMEN PELVIS W from 04/30/2019 FINDINGS: ABDOMEN: Lung Bases: Normal where visualized. Liver: Normal density. No measurable mass. Portal, Superior Mesenteric, and Splenic Veins: Unremarkable. Gallbladder and Biliary Tract: No radiodense calculus or dilation. Pancreas: Normal density, no abnormal calcifications or inflammatory process. Spleen: Normal. Adrenals: No masses seen. Kidneys: Normal size, contour and axis. No radiodense stones or obstructive uropathy. No masses seen. Abdominal Aorta: Abdominal portion non-dilated. Bowel: No obstruction or bowel wall thickening. Appendix is unremarkable. Peritoneal Cavity: No ascites, collection or mesenteric inflammatory response. Lymph Nodes: Within normal limits. Bones: Unremarkable. Soft Tissues: Unremarkable. PELVIS: Bladder: Symmetric distention, no gross wall thickening. Reproductive Organs: Unremarkable as visualized. Lymph Nodes: Within normal limits. Bones: Within normal limits. IMPRESSION: Unremarkable CT scan of the abdomen. RADIATION DOSE DELIVERED: DATA REPOSITORY: All CT scans at this facility are submitted to the National Radiology Data Registry (NRDR) Dose Index Registry (DIR) with the [employer] (ACR). RADIATION OPTIMIZATION: All CT scans at this facility use at least one of these dose optimization te chniques: automated exposure control; mA and/or kV adjustment per patient size (includes targeted exa ms where dose is matched to clinical indication); or iterative reconstruction.
[2019-11-24] MEDS: Normal Saline 1,000 ML 1000 ML IV ×2 (20:17→21:36)
[2019-11-24] MEDS: Ondansetron 4 MG/2 ML VIAL IVP (20:20)
[2019-11-24] MEDS: ACETAMINOPHEN 1,000 MG/100 ML BTL 400 MG IVPB (20:20)
--- NOTE | 2019-11-24 20:28 | DI.VRAD_ITS ---
PROCEDURE INFORMATION: Exam: CT Abdomen And Pelvis With Contrast Exam date and time: 11/24/2019 8:11 PM Age: 29 years old Clinical indication: Abdominal pain; Localized; Right upper quadrant (ruq); Patient HX: Ruq and epigastric pain increasing TECHNIQUE: Imaging protocol: Computed tomography of the abdomen and pelvis with intravenous contrast. Radiation optimization: All CT scans at this facility use at least one of these dose optimization techniques: automated exposure control; mA and/or kV adjustment per patient size (includes targeted exams where dose is matched to clinical indication); or iterative reconstruction. Contrast material: OMNIPAQUE 350; Contrast volume: 100 ml; Contrast route: IV RAC; COMPARISON: CT ABDOMEN PELVIS W 04/30/2019 2:21 AM FINDINGS: Liver: Normal. No mass. Gallbladder and bile ducts: Normal. No calcified stones. No ductal dilation. Pancreas: Normal. No ductal dilation. Spleen: Normal. No splenomegaly. Adrenals: Normal. No mass. Kidneys and ureters: Normal. No hydronephrosis. Stomach and bowel: Unremarkable. No obstruction. No mucosal thickening. Appendix: A normal appendix is identified. Intraperitoneal space: Unremarkable. No free air. No significant fluid collection. Vasculature: Unremarkable. No abdominal aortic aneurysm. Lymph nodes: Unremarkable. No enlarged lymph nodes. Bladder: Unremarkable as visualized. Reproductive: Unremarkable as visualized. Bones/joints: Unremarkable. No acute fracture. Soft tissues: There is a small fat-containing umbilical hernia. IMPRESSION: No acute abnormality. Dictated and Authenticated by: Martha Soliman MD. Ordering:DAWNA Burks MD
[2019-11-24] MEDS: Ketorolac 30 MG/ML VIAL IVP (21:12)
[2019-11-24] MEDS: Pantoprazole 40 MG VIAL IVP (21:13)
[2019-11-24 21:19] LABS: Bilirubin Negative (Negative); Blood Negative (Negative); Clarity Clear (Clear); Glucose Negative (Negative); Ketones 40 mg/dL (Negative); Leukocyte Esterase Negative (Negative); Nitrite Negative (Negative); Urobilinogen 0.2 EU/dL (Up TO 0.2)
[2019-11-24 21:20] VITALS: BP 157/84; PULSE 85; RESP 16; TEMP 37.1; O2SAT 97
[2019-11-24] MEDS: Simethicone 80 MG CHEW 160 MG PO (21:31)
--- NOTE | 2019-11-24 22:02 | NUR.NOTE ---
sent referal to general surgery,,,11/24/19Nursing Note:
== END 2019-11-24 22:35 | disposition home or self-care (01) ==
PROVIDERS: Emergency Provider Physician Assistant; PCP Family Medicine
DX: R10.13 Epigastric pain (principal); R10.11 Right upper quadrant pain
CPT/HCPCS: 36415; 80053; 83690; 96361; 96374; 96375; 99285; 74177; 81003; 85025; 99284; J0131; J1885; J2405; J3490

== ENCOUNTER 2019-11-25 08:14 | Outpatient (CLI) | payer OTHER, SELFPAY ==
--- NOTE | 2019-11-25 | DI.US_ITS ---
TECHNIQUE: Ultrasound abdomen performed using standard protocol. COMPARISON: US ABDOMEN from 05/19/2019 CT ABDOMEN PELVIS W from 11/24/2019 FINDINGS: LIVER: Normal. Hepatopedal flow in the Portal Vein. GALLBLADDER: There is a 1.6 x 1.3 cm immobile stone seen within the neck of the gallbladder. There i s gallbladder wall thickening at 0.8 cm. No pericholecystic fluid identified. KIDNEYS: Kidneys are symmetric in size. No evidence of renal calculi. No evidence of hydronephrosis. No renal mass or cyst identified. BILIARY SYSTEM: Common bile duct measures 5 mm. No intrahepatic biliary ductal dilation. ARIZA'S SIGN: Positive. PANCREAS: Normal where visualized. SPLEEN: Not enlarged. ABDOMINAL AORTA AND IVC: Visualized portions normal caliber. ASCITES: None seen. IMPRESSION: Cholelithiasis with findings suggestive of acute cholecystitis. The findings were discussed with the emergency department on the date of the examination. DATA REPOSITORY:
== END 2019-11-25 08:34 ==
PROVIDERS: PCP Family Medicine; Visit Provider Physician Assistant
DX: K80.10 Calculus of gallbladder with chronic cholecystitis without obstruction (principal)
CPT/HCPCS: 76700

== ENCOUNTER 2019-11-25 10:52 | Emergency (ER) | payer OTHER, SELFPAY ==
[2019-11-25 10:57] VITALS: BP 144/80; PULSE 83; RESP 16; TEMP 36.4; O2SAT 100
[2019-11-25] MEDS: Normal Saline Flush 10 ML SYR IVP (12:18)
[2019-11-25 12:19] LABS: Abs Immature Grans 0.02 k/cumm (0.0-0.09); Absolute Basophil Count 0.01 k/cumm (0.0-0.2); Absolute Eosinophil Count 0.06 k/cumm (0.0-0.7); Absolute Lymphocyte Count 2.58 k/cumm (1.2-3.4); Absolute Monocyte Count 0.93 k/cumm (0.11-0.7); Absolute Neutrophil Count 7.22 k/cumm (1.2-6.7); Basophils % 0.1; Eosinophils % 0.6; HCT 39.5 % (36.0-46.0); HGB 12.8 g/dL (12.0-15.5); Immature Grans % 0.2 %; Lymphocytes % 23.8; Mean Corp. HGB Concentration 32.4 g/dL (32.0-36.0); Mean Corpuscular Volume 83.3 fL (80-95); Mean Platelet Volume 9.2 fL (8.0-11.0); Monocytes % 8.6; Neutrophils % 66.7; Platelet Count 302 x1000/uL (130-400); RBC 4.74 m/cumm (4.00-5.20); RBC Distribution Width 13.7 % (11.7-14.6); White Blood Cell Count 10.82 k/cumm (4.4-10.8)
[2019-11-25 12:31] LABS: ALT 25 U/L (14-59); AST 19 U/L (15-37); Albumin 3.5 g/dL (3.4-5.0); Alkaline Phosphatase 98 U/L (46-116); Anion Gap 8.8 mmol/L (3-11); BUN 13 mg/dL (7-18); Bilirubin, Total 0.5 mg/dL (0.2-1.0); CO2 27.2 mmol/L (21.0-32.0); CREATININE 1.05 mg/dL (0.55-1.02); Calcium 8.5 mg/dL (8.5-10.1); Chloride 104 mmol/L (98-107); Glucose 82 mg/dL (74-106); Lipase 69 U/L (73-393); Potassium 3.7 mmol/L (3.5-5.1); Sodium 140 mmol/L (136-145); Total Protein 7.6 g/dL (6.4-8.2)
--- NOTE | 2019-11-25 12:38 | ED.GENADUL_ITS ---
Discharge Plan Disposition Patient Disposition: HOME Condition: Stable Discharge Details Chief Complaint: Abd Prob Clinical Impression: Cholelithiasis Primary Care Provider: Rosie Ayala ED Provider: Brandan Roberson Home Meds and New Rx's Prescriptions: No Action Nexplanon 68 mg implant 1 implant SBD ONCE RF: 0 pantoprazole 40 mg tablet,delayed release (DR/EC) 40 mg PO DAILY Qty: 30 RF: 0 pantoprazole 40 mg tablet,delayed release (DR/EC) 40 mg PO DAILY Qty: 20 RF: 0 sucralfate [Carafate] 1 gram tablet 1 gm PO QACHS Qty: 60 RF: 0 sertraline 50 mg Tablet 50 mg PO DAILY RF: 0 Discharge Instructions Instructions: Gallstones (ED) Additional Instructions: As we discussed, clear liquid diet, advance as tolerated avoiding fatty, fried foods. Please watch for new or worsening symptoms and return to the ER. Otherwise follow-up with Dr. Waters as an outpatient on Sunday for an elective cholecystectomy. Referrals: Fanta Waters MD [ [facility] STAFF PHYSICIAN] - Medical Decision Making 29-year-old female presents after ultrasound was read as cholelithiasis with findings suggestive acute cholecystitis. She appears well, nontoxic, abdomen certainly nonsurgical at the moment. Given her 11-month history of pain, recent ER visit, likely biliary colic however question is and what timeframe should she have a cholecystectomy. Will obtain routine laboratory values for comparison from yesterday and reach out to surgery. White count is trending down. LFTs unremarkable. Dr. Waters evaluated the patient in the ER. No indication for emergent surgery today. We will plan on elective outpatient surgery on Sunday. Patient is comfortable with this plan. Return precautions were given Medical Records Medical records reviewed: Yes I reviewed the patient's medical records. Lab Data Lab results reviewed: Yes I reviewed the patient's lab results. Lab results narrative: Laboratory Tests Range/Units 11/25/19 11/25/19 12:10 12:10 WBC (4.4-10.8) k/cumm 10.82 H RBC (4.00-5.20) m/cumm 4.74 Hgb (12.0-15.5) g/dL 12.8 Hct (36.0-46.0) % 39.5 MCV (80-95) fL 83.3 MCH (27.0-33.0) pg 27.0 MCHC (32.0-36.0) g/dL 32.4 RDW (11.7-14.6) % 13.7 Plt Count (130-400) x1000/uL 302 MPV (8.0-11.0) fL 9.2 Immature Gran % % 0.2 Neutrophils % 66.7 Lymphocytes % 23.8 Monocytes % 8.6 Eosinophils % 0.6 Basophils % 0.1 Absolute Neutrophils (1.2-6.7) k/cumm 7.22 H Absolute Lymphocytes (1.2-3.4) k/cumm 2.58 Absolute Monocytes (0.11-0.7) k/cumm 0.93 H Absolute Eosinophils (0.0-0.7) k/cumm 0.06 Absolute Basophils (0.0-0.2) k/cumm 0.01 Sodium (136-145) mmol/L 140 Potassium (3.5-5.1) mmol/L 3.7 Chloride (98-107) mmol/L 104 Carbon Dioxide (21.0-32.0) mmol/L 27.2 Anion Gap (3-11) mmol/L 8.8 BUN (7-18) mg/dL 13 D Creatinine (0.55-1.02) mg/dL 1.05 H Estimated GFR/1.73 m2 (mL/min/1.73m2) >= 60.00 Glucose (74-106) mg/dL 82 Calcium (8.5-10.1) mg/dL 8.5 Total Bilirubin (0.2-1.0) mg/dL 0.5 AST (15-37) U/L 19 ALT (14-59) U/L 25 Alkaline Phosphatase (46-116) U/L 98 Total Protein (6.4-8.2) g/dL 7.6 Albumin (3.4-5.0) g/dL 3.5 Lipase (73-393) U/L 69 HPI General Mode of arrival: ambulatory . Date/Time Provider Initiated Documentation: 11/25/19 11:00 . Limitations to Documentation: no limitations . Information obtained by: patient . HPI Narrative: 29-year-old female presents after having had an outpatient ultrasound that was suggestive for cholelithiasis with findings suggestive of acute cholecystitis. Patient reports intermittent abdominal pain for nearly 11 months. Reports being seen in the ER multiple times for the same, last visit was last night. Slightly elevated white count otherwise unremarkable. CT imaging last night negative. Patient reports that the pain right now is achy only a 2 out of 10. She reports intermittent nausea but none now. Currently reports mild abdominal pain, no nausea, no vomiting, no fever. Pain occasionally does radiate to her back. Denies any urinary or bowel symptoms. She is scheduled to be seen by surgery as an outpatient on Sunday. Related Data Home Medications Medication Instructions Recorded Confirmed etonogestrel 68 mg subdermal 1 implant SBD ONCE 09/27/18 11/25/19 implant sertraline 50 mg PO DAILY 04/30/19 11/25/19 pantoprazole 40 mg PO DAILY #30 tab 08/27/19 11/25/19 pantoprazole 40 mg PO DAILY #20 tab 11/24/19 11/25/19 sucralfate [Carafate] 1 gm PO QACHS #60 tab 11/24/19 11/25/19 Previous Rx's Medication Instructions Recorded pantoprazole 40 mg PO DAILY #30 tab 08/27/19 pantoprazole 40 mg PO DAILY #20 tab 11/24/19 sucralfate [Carafate] 1 gm PO QACHS #60 tab 11/24/19 Allergies Allergy/AdvReac Type Severity Reaction Status Date / Time No Known Allergies Allergy Unverified 11/25/19 11:00 General Stated Complaint: Abd Prob CHRISTINA: 3 Review of Systems Constitutional Constitutional: Denies chills, Denies fatigue and Denies fever(s) Cardiovascular Cardiovascular: Denies chest pain Respiratory Respiratory: Denies cough Gastrointestinal Gastrointestinal: Reports abdominal pain, Denies constipation, Denies diarrhea, Reports nausea and Denies vomiting Genitourinary Genitourinary: Denies dysuria Musculoskeletal Musculoskeletal: Reports back pain and Denies myalgias Integumentary/Breasts Skin/Breast: Denies rash Endocrine Endocrine: Denies fatigue [facility] Medical History No active medical problems (Acute) Family History Other Diabetes Social History Smoking/Tobacco Use Status: Never Alcohol Intake: current Alcohol Intake frequency: a few times a month Details: none pt. Drug use: Never Substance use type: does not use Adopted: No Foster care: No Household members: spouse Pets and animals: Yes (2 cats) What is your relationship status?: Panel score (0-1 are the most socially isolated patients): 1 Analisa/Anglican: evangelica Special analisa needs: No Do you feel safe at home: Yes Do you feel safe in your relationship?: Yes History History 1 Para 1 Hx # Term Pregnancies 1 Multiple births 0 Hx # Pregnancies 0 Ectopic pregnancies 0 AB induced 0 Hx Number of Living Children 1 AB spontaneous 0 Past Pregnancies Del. Date GA/Weeks # Outcome Route Wgt Sex Labor Lgth Anesthes ia Location [facility] 08/04/18 37 No Successful vaginal 3.147 kg Male 12 hours 28 minutes Evette Huang CNM Exam Const General: cooperative, healthy appearing, comfortable and no acute distress Orientation: alert and awake HENME Head: normal to inspection, normocephalic and atraumatic Mouth: moist mucous membranes Eyes Conjunctivae: conjunctivae normal Neck Neck: normal visual inspection, trachea midline and supple Resp Effort & Inspection: normal respiratory effort and able to speak in complete sentences Auscultation: clear to auscultation bilaterally Cardio Rate: regular rate Rhythm: regular rhythm GI Inspection: normal to inspection Palpation: soft, not firm, no guarding, not rigid and tender in the RUQ (Mild to moderate-deep palpation) Auscultation: normal bowel sounds Back/Spine/Pelvis Back: No back tenderness Skin General skin exam: no rashes or lesions noted Neuro General: patient alert, patient awake, moves all extremities and no focal motor deficits Sensory Exam: no sensory deficits noted Psych Appearance: grossly normal Mental Status: mental status grossly normal Course Vital Signs Vital signs: Vital Signs Temperature 36.4 C L 11/25/19 10:57 Pulse 83 11/25/19 10:57 Respiratory Rate 16 11/25/19 10:57 Blood Pressure 144/80 H 11/25/19 10:57 Pulse Oximetry 100 11/25/19 10:57 Temperature 36.4 C L 11/25/19 10:57 Temperature Source Skin 11/25/19 10:57 Pulse 83 11/25/19 10:57 Respiratory Rate 16 11/25/19 10:57 Respiratory Effort Non-Labored 11/25/19 10:57 Blood Pressure 144/80 H 11/25/19 10:57 Blood Pressure Position Sitting 11/25/19 10:57 Pulse Oximetry 100 11/25/19 10:57 Oxygen Delivery Method Room Air 11/25/19 10:57 Oxygen Flow Rate 0 11/25/19 10:57 Pain Level 2 11/25/19 10:57 Lab/Test Results Lab/Test Results: Laboratory Tests Range/Units 11/25/19 11/25/19 12:10 12:10 WBC (4.4-10.8) k/cumm 10.82 H RBC (4.00-5.20) m/cumm 4.74 Hgb (12.0-15.5) g/dL 12.8 Hct (36.0-46.0) % 39.5 MCV (80-95) fL 83.3 MCH (27.0-33.0) pg 27.0 MCHC (32.0-36.0) g/dL 32.4 RDW (11.7-14.6) % 13.7 Plt Count (130-400) x1000/uL 302 MPV (8.0-11.0) fL 9.2 Immature Gran % % 0.2 Neutrophils % 66.7 Lymphocytes % 23.8 Monocytes % 8.6 Eosinophils % 0.6 Basophils % 0.1 Absolute Neutrophils (1.2-6.7) k/cumm 7.22 H Absolute Lymphocytes (1.2-3.4) k/cumm 2.58 Absolute Monocytes (0.11-0.7) k/cumm 0.93 H Absolute Eosinophils (0.0-0.7) k/cumm 0.06 Absolute Basophils (0.0-0.2) k/cumm 0.01 Sodium (136-145) mmol/L 140 Potassium (3.5-5.1) mmol/L 3.7 Chloride (98-107) mmol/L 104 Carbon Dioxide (21.0-32.0) mmol/L 27.2 Anion Gap (3-11) mmol/L 8.8 BUN (7-18) mg/dL 13 D Creatinine (0.55-1.02) mg/dL 1.05 H Estimated GFR/1.73 m2 (mL/min/1.73m2) >= 60.00 Glucose (74-106) mg/dL 82 Calcium (8.5-10.1) mg/dL 8.5 Total Bilirubin (0.2-1.0) mg/dL 0.5 AST (15-37) U/L 19 ALT (14-59) U/L 25 Alkaline Phosphatase (46-116) U/L 98 Total Protein (6.4-8.2) g/dL 7.6 Albumin (3.4-5.0) g/dL 3.5 Lipase (73-393) U/L 69
--- NOTE | 2019-11-25 13:06 | SCONE_ITS ---
Date of service: 11/25/19 Time of Service: 13:07 Assessment and Plan Assessment and plan (1) Biliary colic: Status: Acute Assessment and plan: A\\ 29 year old with Biliary Cholic x10 to 11 months. Feeling better right now. Murphies sign per US tech. NO Murphies sign when I examined her in the ER. The patient has a toddler at home for who she needs to make arrangements. She would rather not have emergency surgery. P\\ Low fat diet and small meals Will schedule for semi-urgent Lap Andreina next Sunday Risks, benefits, complications were reviewed with the patient in the office. Complications include but are not limited to bleeding, infection, injury to stomach, small bowel and large bowel, injury to the pancreas, injury to the common bile duct necessitating drainage and referral to tertiary center for repair, bile leak, adverse reactions to the medications, complications of intubation including a sore throat or injury to the uvula, NC, stroke and even . Questions were entertained and answered to her satisfaction and she wished to proceed. No guarantees were given or implied. History of Present Illness History of Present Illness Chief Complaint: Abdominal pain Narrative: Mrs. Barnett is a pleasant 29 year old female with a hx of intermittent RUQ abdominal pain for the last 10 to 11 months. She is 15 months post-. She was seen in the ER yesterday evening and a CT scan was done which was unremarkable. She was set up to have an outpatient US done today which showed a stone in the neck of the Gallbladder. She feels better then she did last night. She has a dull ache at this time. When she gets the spike in pain she does have some associated nausea. Labs yesterday showed a mild leukocytosis which has improved on labs today. Consults Consult date: 11/25/19 Requesting physician: Brandan Roberson Review of Systems Constitutional Constitutional: Denies fatigue, Denies fever(s), Denies headache(s) and Denies weight loss Eyes Eyes: Denies change in vision ENT Ears, Nose, Mouth, and Throat: Denies change in voice, Denies headache(s) and Denies hoarseness Cardiovascular Cardiovascular: Denies chest pain, Denies chest pain at rest, Denies chest pain with activity, Denies dyspnea and Denies dyspnea on exertion Respiratory Respiratory: Denies chest congestion, Denies cough, Denies dyspnea and Denies dyspnea on exertion Gastrointestinal Gastrointestinal: Reports as per HPI Genitourinary Genitourinary: Reports system reviewed and no additional complaints, except as documented and Denies difficulty voiding Musculoskeletal Musculoskeletal: Reports system reviewed and no additional complaints, except as documented Integumentary/Breasts Skin/Breast: Reports system reviewed and no additional complaints, except as documented Neurologic Neurologic: Reports system reviewed and no additional complaints, except as documented and Denies headache(s) Psychiatric Psychiatric: Reports system reviewed and no additional complaints, except as documented Endocrine Endocrine: Reports system reviewed and no additional complaints, except as documented and Denies fatigue Hematologic/Lymphatic Hematologic/Lymphatic: Denies easy bleeding, Denies easy bruising and Denies lymphadenopathy [facility] Medical History (Updated 11/25/19 @ 13:15 by Fanta Waters MD) Anxiety with depression (Inactive 12/18/17) Body mass index (BMI) of 35.0 to 35.9 in adult (Inactive 12/18/17) Cholelithiasis (Inactive) Elevated blood pressure reading without diagnosis of hypertension (Inactive 12/18/17) Family History Other Diabetes Social History Smoking/Tobacco Use Status: Never Alcohol Intake: current Alcohol Intake frequency: a few times a month Details: none pt. Drug use: Never Substance use type: does not use Adopted: No Foster care: No Household members: spouse Pets and animals: Yes (2 cats) What is your relationship status?: Panel score (0-1 are the most socially isolated patients): 1 Analisa/Alevism: evangelica Special analisa needs: No Do you feel safe at home: Yes Do you feel safe in your relationship?: Yes History History 1 Para 1 Hx # Term Pregnancies 1 Multiple births 0 Hx # Pregnancies 0 Ectopic pregnancies 0 AB induced 0 Hx Number of Living Children 1 AB spontaneous 0 Past Pregnancies Del. Date GA/Weeks # Outcome Route Wgt Sex Labor Lgth Anesthes ia Location Prov Complic 08/04/18 37 No Successful vaginal 6 lb 15 oz Male 12 hours 28 minut jeovanny Huang CNM Exam Const General: cooperative, comfortable and no acute distress Nutritional Appearance: overweight Orientation: alert and oriented x3 HENMT Head: normocephalic and atraumatic Resp Effort & Inspection: normal respiratory effort Auscultation: clear to auscultation bilaterally Cardio Rate: regular rate Rhythm: regular rhythm Heart Sounds: no gallops, no murmurs and no rubs GI Inspection: normal to inspection Palpation: soft, no hepatosplenomegaly and tender (mild RUQ pain, no guarding or rebound) Rodgers's sign negative Auscultation: normal bowel sounds Results Last Vital Signs Temp 97.5 F L 11/25/19 10:57 Pulse 83 11/25/19 10:57 Resp 16 11/25/19 10:57 BP 144/80 H 11/25/19 10:57 Pulse Ox 100 11/25/19 10:57 Labs Result diagrams: 11/25/19 12:10 11/25/19 12:10 Labs: Laboratory Results - last 24 hr 11/25/19 11/25/19 12:10 12:10 WBC 10.82 H RBC 4.74 Hgb 12.8 Hct 39.5 MCV 83.3 MCH 27.0 MCHC 32.4 RDW 13.7 Plt Count 302 MPV 9.2 Immature Gran % 0.2 Neutrophils % 66.7 Lymphocytes % 23.8 Monocytes % 8.6 Eosinophils % 0.6 Basophils % 0.1 Absolute Neutrophils 7.22 H Absolute Lymphocytes 2.58 Absolute Monocytes 0.93 H Absolute Eosinophils 0.06 Absolute Basophils 0.01 Sodium 140 Potassium 3.7 Chloride 104 Carbon Dioxide 27.2 Anion Gap 8.8 BUN 13 D Creatinine 1.05 H Estimated GFR/1.73 m2 >= 60.00 Glucose 82 Calcium 8.5 Total Bilirubin 0.5 AST 19 ALT 25 Alkaline Phosphatase 98 Total Protein 7.6 Albumin 3.5 Lipase 69
[2019-11-25 13:07] VITALS: BP 103/67; PULSE 83; RESP 20; TEMP 36.5; O2SAT 100
== END 2019-11-25 13:15 | disposition home or self-care (01) ==
PROVIDERS: Emergency Provider Physician Assistant; PCP Family Medicine
DX: K80.00 Calculus of gallbladder with acute cholecystitis without obstruction (principal); R10.11 Right upper quadrant pain
CPT/HCPCS: 36415; 80053; 83690; 99252; 99283; 85025

== ENCOUNTER 2019-11-28 15:42 | Observation (INO) | payer OTHER, SELFPAY ==
[2019-11-28] VITALS (17 sets, daily range): BP systolic 91–127; BP diastolic 33–76; PULSE 58–96; RESP 15–21; TEMP 36–36.7; O2SAT 96–99
--- NOTE | 2019-11-28 06:59 | ROE_ITS ---
Date of service: 11/28/19 Time of Service: 11:16 Operative Note Operative Note DATE OF PROCEDURE: 11/28/19 PRE-OP DIAGNOSIS: Biliary Cholic/ Acute Cholecystitis POST-OP DIAGNOSIS: same Chronic cholecystitis PROCEDURE: Laparoscopic Cholecystectomy SURGEON: Fanta Waters FRAME STRAIGHTENER: Rebekah Samson ANESTHESIA: GETA (ASA 2 / Najma Ding, JEFFERY) ESTIMATED BLOOD LOSS: 50 PATHOLOGY: other (Gallbladder) COMPLICATIONS: None Patient was transported to: PACU Patient's condition: stable Indications: 29 year old with Biliary Cholic x10 to 11 months. US showed a stone in the neck of the gallbladder. No pericholecystic fluid. Risks, benefits, complications were reviewed with the patient in the office. Complications include but are not limited to bleeding, infection, injury to stomach, small bowel and large bowel, injury to the pancreas, injury to the common bile duct necessitating drainage and referral to tertiary center for repair, bile leak, adverse reactions to the medications, complications of intubation including a sore throat or injury to the uvula, CA, stroke and even . Questions were entertained and answered to her satisfaction and she wished to proceed. No guarantees were given or implied. Findings: Thickened gallbladder 2 large stones Procedure Description: After informed consent was obtained the patient was taken to the the operating room, placed in a supine position and monitors were applied. SCDs were applied to her lower extremities and she was placed under general anesthesia and intubated without difficulty. Her abdomen was then prepped and draped in a sterile fashion using ChloraPrep. At this point a timeout was done and the patient's name, date of , procedure type, allergies to medications, metal in her body, antibiotic and DVT prophylaxis were reviewed. Fire risk was assessed. At this point exparel mixed with 0.25% Bupivocaine plain was injected just above the umbilicus into the dermis and subcutaneous tissue. A 5 mm incision was made with an 11 blade. The skin next to the incision was grasped with penetrating towel clamps and while pulling up on the skin a 5 mm port was placed under direct visualization. The abdomen was insuflated and then 3 more ports were placed. A 12 mm port was placed in the subxiphoid area and two 5 mm ports were placed in the right upper quadrant. The liver was inspected and looked normal. The patient's bed was then turned to the left and her head was brought up. The gallbladder was inspected. 2 large stones were palpated, one in the neck and one in the body. The gallbladder was grasped at the body and pushed towards the right shoulder. Thick scarr tissue was noted and this was carefully dissected away with a evangelista dissector with cautery as well as a ligasure.I was the able to see the neck of the gallbladder. The neck was grasped and pulled towards the right flank and down allowing me to visualize the lymph node. Using a [place] dissector with cautery the lymph node was gently dissected away from the tissues and the fatty tissue was also dissected away. The cystic duct was identified it was normal in size. The duct was dissected 360 degrees using the [place] dissector in order for me to visualize its entrance into the gallbladder. Liver was noted behind it. There were no other structures right behind. The cystic artery was then identified and dissected 360 degrees. It was located just medial to the cystic duct. It was visualized going into the gallbladder. Once both structures were dissected the critical view was achieved. 3 clips were placed one proximal and 2 distal on both the cystic ar johanna and the cystic duct . Both were then cut. Using the hook dissector the gallbladder was then dissected away from the liver bed and placed into an Endo Catch bag. The 12 mm port was removed and the skin and fascia had to be cut in order for the gallbladder to be pulled through. The 12 mm port was placed back into the abdomen under direct visualization. The liver bed was inspected and bleeding was noted. A Raytech was placed into the abdomen and pressure was applied to the liver bed. A piece of surgicell was placed into the liver bed and again pressure was held. After a few minutes the Raytech and surgicell were removed from the abdomen. There was some bleeding noted from the liver still and this was cauterized. Once the liver bed was mostly dry the abdomen was then irrigated with a 2 and a half liters of normal saline until the effluent was clear. Once all the fluid was suctioned out floseal was injected onto the liver bed for the 2 to 3 small areas of oozing. NO more bleeding was identifed after that. The 12 mm and the 2 right upper quadrant ports were removed under direct visualization and no bleeding was noted from the fascia. The abdomen was deflated completely and lastly the umbilical port was removed. The skin was cleaned and the incisions were closed with 4-0 Vicryl. The skin was dried and skin affix was applied over the closed incisions. Needle and sp onge counts were correct at the end of the case. At this point the patient was woken up, extubated and taken back to recovery in stable condition. There were no immediate complications. New Covid-19 precautiones were used for both intubation and extubation.
[2019-11-28] MEDS: Lactated Ringers 1,000 ML 80 ML IV ×2 (07:01→10:11)
[2019-11-28] MEDS: Acetaminophen 500 MG TAB 1000 MG PO (07:02)
[2019-11-28] MEDS: Gabapentin 300 MG CAP 600 MG PO (07:02)
[2019-11-28] MEDS: Celecoxib 200 MG CAP PO (07:02)
--- NOTE | 2019-11-28 07:02 | W.PM.DSUDISC ---
Discharge Plan Disposition Patient Disposition: HOME Condition: Good Discharge Details Reason For Visit: Biliary Cholic/ Acute Cholecystitis Attending Provider: Fanta Waters Primary Care Provider: Rosie Ayala Home Meds and New Rx's Prescriptions: New acetaminophen [Tylenol] 325 mg tablet 325 mg PO Q6H PRN (Reason: fever or pain) Qty: 90 RF: 0 ibuprofen 600 mg tablet 600 mg PO Q6H PRN (Reason: fever or pain) Qty: 60 RF: 0 oxycodone 5 mg tablet 5 mg PO Q6H PRN (Reason: pain) Qty: 14 RF: 0 Continued Nexplanon 68 mg implant 1 implant SBD ONCE RF: 0 pantoprazole 40 mg tablet,delayed release (DR/EC) 40 mg PO DAILY Qty: 30 RF: 0 sucralfate [Carafate] 1 gram tablet 1 gm PO QACHS Qty: 60 RF: 0 sertraline 50 mg Tablet 50 mg PO DAILY RF: 0 Discharge Instructions Instructions: Laparoscopic Cholecystectomy (DC) Additional Instructions: Activity at Home after surgery: 1. Make sure you walk outside at least 4 times per day 2. You should be able to climb a flight of stairs 3. No driving while in pain or taking pain medications 4. No strenuous activity or heavy lifting for 2 weeks (laparoscopic surgery) Diet, Nutrition, & wound healin. Avoid alcohol until after you are recovered from your surgery 2. Make sure to eat plenty of lean protein (meat, fish, eggs, cottage cheese, beans) 3. Eat a variety of fruits and vegetables. Eat plenty of high fiber foods to avoid constipation. 4. Drink plenty of liquids to stay hydrated and avoid constipation Pain Medications: 1. Alternate Tylenol 1000 mg and Ibuprofen 600 mg every 3 hours 2. If a narcotic has been prescribed take as directed only for breakthrough pain For Constipation: 1. Take Milk of Magnesia or MiraLax as needed for constipation Other: 1. You may shower daily. Do not scrub the incisions 2. Do not soak the incisions for 1 week 3. You may alternate ice and heat as needed for pain and swelling Wound Care: 1. Keep the incisions clean and dry Please call our office if you develop: 1. Fevers >101.5 2. Nausea or Vomiting 3. Worsening pain 4. Redness and thick discharge from the wounds If after hours please call the Hospital at and ask to speak to the on-call surgeon Referrals: Fanta Waters MD [ [facility] STAFF PHYSICIAN] - 12/12/19 Activity:: No lifting >20 lb Diet:: low fat diet Discharge Orders Discharge Orders: Discharge Order (Routine); Ordered 11/28/19 Ordered By: Fanta Waters DS: Diagnosis Discharge Diagnosis (1) Biliary colic: Status: Acute (2) Chronic cholecystitis with calculus: Status: Acute
[2019-11-28] MEDS: AMPICILLIN/SULBACTAM 3 GM in Normal Saline 100 ML IVPB (08:37)
[2019-11-28] MEDS: Bupivacaine 0.25% Pres-Free 10 ML VIAL (08:59)
[2019-11-28] MEDS: Bupivacaine LIPOSOME/PF 133 MG/10 ML VIAL IJ (08:59)
--- NOTE | 2019-11-28 10:01 | GB_PTH ---
PATIENT: MAGNO GOODWIN LOC: U#:[id number] AGE/SX: 29/F ROOM: [facility] RE11/28/[address]: Jennie Iqbal : 1990 BED: A DIS: 11/29/2019 SPEC #: [id number] RECD: 11/28/19 12:44 STATUS: GEORGE REQ #: [id number] JOON: 11/28/19 10:[address]: Fanta Waters DEPT: Surgical Specimen RECD BY: Katina Garcia ENTERED: 11/28/19 12:45 SP TYPE: GB OTHR DR: Rosie Ayala Tissues: 1 - GALLBLADDER Procedures: GROSS AND MICRO LEVEL 3 Comments: [id number]
[2019-11-28] MEDS: Cellulose,Oxidized 4X8 1 PACKET MC (10:05)
[2019-11-28] MEDS: Droperidol 5 MG/2 ML VIAL 0.625 MG IVP (15:20)
--- NOTE | 2019-11-28 15:48 | W.PM.HP.N ---
Date of service: 11/28/19 Time of Service: 15:48 Assessment and Plan Assessment and plan (1) Chronic cholecystitis with calculus: Status: Acute (2) Biliary colic: Status: Acute (3) PONV (postoperative nausea and vomiting): Status: Acute Assessment and plan: will admit for IV fluids and antiemetics. pt did not have an infected GB and dose not require abx highly doubt pt is bleeding- but will check post Op HH routine postOp cares and pulm toilet plan d/c in am d/w huband pt findings History of Present Illness Consults Consult date: 11/28/19 Narrative: pt is s/p lap ashwini. She is still having PONV. No chest pain or SOB. vision is blurry. pt b/c hypotensive when she stands. She has never had anethesia in the past. She is normally slt HTN. no tachycardia and NSR. Review of Systems All systems reviewed & are unremarkable except as noted in HPI and below PFSH Medical History Anxiety with depression (Inactive 12/18/17) Body mass index (BMI) of 35.0 to 35.9 in adult (Inactive 12/18/17) Cholelithiasis (Inactive) Elevated blood pressure reading without diagnosis of hypertension (Inactive 12/18/17) Family History Other Diabetes Social History Smoking/Tobacco Use Status: Never Alcohol Intake: current Alcohol Intake frequency: a few times a month Alcohol type: beer Details: none pt. Drug use: Never Substance use type: does not use Adopted: No Foster care: No Household members: spouse Pets and animals: Yes (2 cats) What is your relationship status?: Panel score (0-1 are the most socially isolated patients): 1 Analisa/Nondenominational: evangelica Special analisa needs: No Do you feel safe at home: Yes Do you feel safe in your relationship?: Yes History History 1 Para 1 Hx # Term Pregnancies 1 Multiple births 0 Hx # Pregnancies 0 Ectopic pregnancies 0 AB induced 0 Hx Number of Living Children 1 AB spontaneous 0 Past Pregnancies Del. Date GA/Weeks # Outcome Route Wgt Sex Labor Lgth Anesthesia Location Prov Complic 08/04/18 37 No Successful vaginal 3.147 kg Male 12 hours 28 minutes Evette Huang CNM Meds Home Medications and Allergies Home Medications Medication Instructions Recorded Confirmed Type etonogestrel 68 mg subdermal 1 implant SBD ONCE 09/27/18 11/26/19 History implant sertraline 50 mg PO DAILY 04/30/19 11/28/19 History pantoprazole 40 mg PO DAILY #30 tab 08/27/19 11/28/19 Rx sucralfate [Carafate] 1 gm PO QACHS #60 tab 11/24/19 11/25/19 Rx acetaminophen [Tylenol] 325 mg PO Q6H PRN #90 tab 11/28/19 Rx ibuprofen 600 mg PO Q6H PRN #60 tab 11/28/19 Rx oxycodone 5 mg PO Q6H PRN #14 tab 11/28/19 Rx Allergies Allergy/AdvReac Type Severity Reaction Status Date / Time No Known Allergies Allergy Unverified 11/28/19 06:32 Exam HENMT Ears: hearing grossly normal bilaterally Other: no mouth pain or sore throat c/o blurry vision. no eye pain/swelling Resp Effort & Inspection: normal respiratory effort and able to speak in complete sentences Other: CTA b/l GI Other: no distention nl postOp pain- 3 slt bleeding from epigastric port site Results Labs Result diagrams: 11/28/19 16:03 Last Vital Signs Temp 36.4 C L 11/28/19 14:56 Pulse 64 11/28/19 15:31 Resp 18 11/28/19 15:31 BP 127/66 11/28/19 15:31 Pulse Ox 98 11/28/19 15:31
[2019-11-28] MEDS: Scopolamine 1 MG/3 DAYS PATCH TD (15:50)
[2019-11-28] MEDS: Lactated Ringers 1,000 ML 125 ML IV (15:51)
--- NOTE | 2019-11-28 15:56 | NUR.NOTE ---
Nursing Note:11/28/19 0330: Attempted to get pt to restroom for 3rd attempt. Pt again became pale, started vomiting and stated that she felt very weak. She was laid back down and the MD cotton machine operator, Dr. Steele was notified and asked to evaluate. She came to see the pt and stated that she should be admitted over night for observation. IV fluids were continued and switched to a standard primary line. Dr. Steele came back to see pt after talking with spouse. Upon assessing the dressing site, the larger trochar site was found to be bloody and she asked that it be changed to a pressure dressing with 4x4 gauze. She was then transfered to the 2nd floor for admission to room 225.
[2019-11-28] MEDS: Ketorolac 30 MG/ML VIAL IVP (18:12)
[2019-11-28] MEDS: Normal Saline Flush 10 ML SYR IVP (18:12)
[2019-11-28 19:00] LABS: HCT 36.7 % (36.0-46.0); HGB 11.8 g/dL (12.0-15.5)
[2019-11-29 03:23] VITALS: BP 129/80; PULSE 84; RESP 17; TEMP 36.8; O2SAT 98
[2019-11-29] MEDS: ACETAMINOPHEN 1,000 MG/100 ML BTL 400 MG IVPB ×2 (03:50→12:07)
[2019-11-29] MEDS: Ketorolac 30 MG/ML VIAL IVP ×2 (03:51→09:28)
[2019-11-29] MEDS: oxyCODONE 5 MG TAB PO ×2 (03:51→07:42)
[2019-11-29 07:02] LABS: Abs Immature Grans 0.03 k/cumm (0.0-0.09); Absolute Eosinophil Count 0.06 k/cumm (0.0-0.7); Absolute Lymphocyte Count 1.84 k/cumm (1.2-3.4); Absolute Monocyte Count 0.67 k/cumm (0.11-0.7); Absolute Neutrophil Count 7.67 k/cumm (1.2-6.7); Eosinophils % 0.6; HCT 35.3 % (36.0-46.0); HGB 11.2 g/dL (12.0-15.5); Immature Grans % 0.3 %; Lymphocytes % 17.9; Mean Corp. HGB Concentration 31.7 g/dL (32.0-36.0); Mean Corpuscular Hemoglobin 26.9 pg (27.0-33.0); Mean Corpuscular Volume 84.7 fL (80-95); Mean Platelet Volume 9.8 fL (8.0-11.0); Monocytes % 6.5; Neutrophils % 74.7; Platelet Count 281 x1000/uL (130-400); RBC 4.17 m/cumm (4.00-5.20); RBC Distribution Width 13.5 % (11.7-14.6); White Blood Cell Count 10.27 k/cumm (4.4-10.8)
[2019-11-29 07:20] LABS: ALT 44 U/L (14-59); AST 41 U/L (15-37); Albumin 2.6 g/dL (3.4-5.0); Alkaline Phosphatase 80 U/L (46-116); BUN 9 mg/dL (7-18); Bilirubin, Total 0.4 mg/dL (0.2-1.0); CREATININE 0.92 mg/dL (0.55-1.02); Calcium 7.8 mg/dL (8.5-10.1); Chloride 103 mmol/L (98-107); Glucose 81 mg/dL (74-106); Potassium 3.7 mmol/L (3.5-5.1); Sodium 140 mmol/L (136-145); Total Protein 6.4 g/dL (6.4-8.2)
[2019-11-29 07:30] VITALS: BP 114/71; PULSE 74; RESP 18; TEMP 36.6; O2SAT 97
[2019-11-29] MEDS: Pantoprazole 40 MG TABCR PO (07:43)
[2019-11-29] MEDS: Lactated Ringers 1,000 ML 125 ML IV ×2 (07:48)
[2019-11-29] MEDS: Milk of Magnesia 30 ML CUP PO (09:25)
[2019-11-29] MEDS: Normal Saline Flush 10 ML SYR IVP (09:30)
--- NOTE | 2019-11-29 12:42 | W.PM.DS.N ---
Date of service: 11/29/19 Time of Service: 12:42 DS: Diagnosis Discharge Diagnosis (1) Chronic cholecystitis with calculus: Status: Acute (2) Biliary colic: Status: Acute (3) PONV (postoperative nausea and vomiting): Status: Acute Discharge Plan Disposition Patient Disposition: HOME Condition: Good Discharge Details Reason For Visit: PONV/S/P LAP RAYMUNDO FOR STONES Admit Date/Time: 11/28/19 15:42 Admit Provider: Jennie Iqbal Attending Provider: Jennie Iqbal Primary Care Provider: Rosie Ayala Hospital Course Hospital Course: Pt admitted w/ PONV. Today she is feeling much better and able to tolerate po's. her pain is controlled. lungs are clear and not productive or dry cough. no leg pain or swelling. incisions are C/D/I. pain is well controlled. she is dc'ed to home w/ instructions and Rx for pain. take MOM as needed for constiaption. Call on sunday for clinic appt. call hospital w/ questions/return to ED if problems- see below. Home Meds and New Rx's Prescriptions: New acetaminophen [Tylenol] 325 mg tablet 325 mg PO Q6H PRN (Reason: fever or pain) Qty: 90 RF: 0 ibuprofen 600 mg tablet 600 mg PO Q6H PRN (Reason: fever or pain) Qty: 60 RF: 0 oxycodone 5 mg tablet 5 mg PO Q6H PRN (Reason: pain) Qty: 14 RF: 0 Continued Nexplanon 68 mg implant 1 implant SBD ONCE RF: 0 pantoprazole 40 mg tablet,delayed release (DR/EC) 40 mg PO DAILY Qty: 30 RF: 0 sucralfate [Carafate] 1 gram tablet 1 gm PO QACHS Qty: 60 RF: 0 sertraline 50 mg Tablet 50 mg PO DAILY RF: 0 Discharge Instructions Instructions: Laparoscopic Cholecystectomy (DC) Additional Instructions: Activity at Home after surgery: 1. Make sure you walk outside at least 4 times per day 2. You should be able to climb a flight of stairs 3. No driving while in pain or taking pain medications 4. No strenuous activity or heavy lifting for 2 weeks (laparoscopic surgery) Diet, Nutrition, & wound healin. Avoid alcohol until after you are recovered from your surgery 2. Make sure to eat plenty of lean protein (meat, fish, eggs, cottage cheese, beans) 3. Eat a variety of fruits and vegetables. Eat plenty of high fiber foods to avoid constipation. 4. Drink plenty of liquids to stay hydrated and avoid constipation Pain Medications: 1. Alternate Tylenol 1000 mg and Ibuprofen 600 mg every 3 hours 2. If a narcotic has been prescribed take as directed only for breakthrough pain For Constipation: 1. Take Milk of Magnesia or MiraLax as needed for constipation Other: 1. You may shower daily. Do not scrub the incisions 2. Do not soak the incisions for 1 week 3. You may alternate ice and heat as needed for pain and swelling Wound Care: 1. Keep the incisions clean and dry Please call our office if you develop: 1. Fevers >101.5 2. Nausea or Vomiting 3. Worsening pain 4. Redness and thick discharge from the wounds If after hours please call the Hospital at and ask to speak to the on-call surgeon Stand Alone Forms: Radha Darnell ([facility]U) Referrals: Fanta Waters MD [ [facility] STAFF PHYSICIAN] - 12/12/19 Activity:: No lifting >20 lb Activity:: no lifting over 5#'s x 2 wks . No driving for 72 hrs Equipment/Supplies:: No Equipment Needed Diet:: low fat diet Discharge Orders Discharge Orders: Discharge Order (Routine); Ordered 11/28/19 Ordered By: Fanta Waters DS: Summary Status at Discharge Functional status at discharge: independent ambulation Overall status at discharge: patient is back to baseline Mental Status: mental status grossly normal Speech and Movement: speech and movement normal Mood: congruent mood Affect: normal affect Exam Psych Mental Status: mental status grossly normal Speech and Movement: speech and movement normal Mood: congruent mood Affect: normal affect DS: Data Vitals/I&O Vitals and I&O: Vital Signs Temperature 36.6 C 11/29/19 07:30 Temperature Source Temporal Artery Scan 11/29/19 07:30 Pulse 74 11/29/19 07:30 Pulse Rhythm Regular 11/29/19 07:30 Respiratory Rate 18 11/29/19 07:30 Respiratory Effort Non-Labored 11/29/19 07:30 Respiratory Depth Normal 11/29/19 07:30 Respiratory Pattern Normal 11/29/19 07:30 Blood Pressure 114/71 11/29/19 07:30 Blood Pressure Mean 86 11/28/19 15:31 Blood Pressure Position Supine 11/28/19 14:56 Pulse Oximetry 97 11/29/19 07:30 Respiratory End-tidal CO2 40 11/28/19 12:35 Oxygen Delivery Method Room Air 11/29/19 07:30 Oxygen Flow Rate 0 11/29/19 07:30 Pain Level 3 11/29/19 10:28 Comment 11/28/19 15:31 Intake & Output 11/28/19 11/29/19 11/29/19 23:59 11:59 23:59 Intake Total 1950 / 3150 1075 / 1075 Output Total 800 / 800 Balance 1950 / 3150 275 / 275 Weight 98.293 kg Intake: IV 1800 / 3000 1075 / 1075 Oral 150 / 150 Output: Urine 800 / 800 Other: Urine Color Straw Urine Appearance Clear Clots Urine Odor Normal Comment incontinent x 1 on admission to med/surg floor. Some blood seen in urine. Pt notes that she has started her menses. Very small strand of blood on top of collection device. Emesis Description None Voiding Methods Toilet Data Completed and Pending Labs on day of discharge: Labs from last 24 hours 11/29/19 11/29/19 11/28/19 06:15 06:15 18:53 WBC 10.27 RBC 4.17 Hgb 11.2 L 11.8 L Hct 35.3 L 36.7 MCV 84.7 MCH 26.9 L MCHC 31.7 L RDW 13.5 Plt Count 281 MPV 9.8 Immature Gran % 0.3 Neutrophils % 74.7 Lymphocytes % 17.9 Monocytes % 6.5 Eosinophils % 0.6 Basophils % 0.0 Absolute Neutrophils 7.67 H Absolute Lymphocytes 1.84 Absolute Monocytes 0.67 Absolute Eosinophils 0.06 Absolute Basophils 0.00 Sodium 140 Potassium 3.7 Chloride 103 Carbon Dioxide 29.0 Anion Gap 8.0 BUN 9 Creatinine 0.92 Estimated GFR/1.73 m2 >= 60.00 Glucose 81 Calcium 7.8 L Total Bilirubin 0.4 AST 41 H ALT 44 Alkaline Phosphatase 80 Total Protein 6.4 Albumin 2.6 L PENDING SALE TO [facility] Medical History Anxiety with depression (Inactive 12/18/17) Body mass index (BMI) of 35.0 to 35.9 in adult (Inactive 12/18/17) Cholelithiasis (Inactive) Elevated blood pressure reading without diagnosis of hypertension (Inactive 12/18/17) Family History Other Diabetes Social History Smoking/Tobacco Use Status: Never Alcohol Intake: current Alcohol Intake frequency: a few times a month Alcohol type: beer Details: none pt. Drug use: Never Substance use type: does not use Adopted: No Foster care: No Household members: spouse Pets and animals: Yes (2 cats) What is your relationship status?: Panel score (0-1 are the most socially isolated patients): 1 Analisa/Adventism: evangelica Special analisa needs: No Do you feel safe at home: Yes Do you feel safe in your relationship?: Yes History History 1 Para 1 Hx # Term Pregnancies 1 Multiple births 0 Hx # Pregnancies 0 Ectopic pregnancies 0 AB induced 0 Hx Number of Living Children 1 AB spontaneous 0 Past Pregnancies Del. Date GA/Weeks # Outcome Route Wgt Sex Labor Lgth Anesthesia Location Prov Complic 08/04/18 37 No Successful vaginal 3.147 kg Male 12 hours 28 minutes Evette Huang CNM
== END 2019-11-29 15:46 | disposition home or self-care (01) | DRG 357 ==
LOC: MS 11-29 09:32
PROVIDERS: Surgery; Admitting Provider Surgery; PCP Family Medicine; Visit Provider Surgery
PROC: 0FT44ZZ Resection of Gallbladder, Percutaneous Endoscopic Approach (ICD-10-PCS; CPT 47562; principal; 2019-11-28 07:30)
DX: K91.0 Vomiting following gastrointestinal surgery (principal); K80.46 Calculus of bile duct with acute and chronic cholecystitis without obstruction; Y83.6 Removal of other organ (partial) (total) as the cause of abnormal reaction of the patient, or of later complication, without mention of misadventure at the time of the procedure; Z23 Encounter for immunization
CPT/HCPCS: 47562; 36415; 80053; 99238; NC; 85014; 85018; 85025; 88304; J0131; J0295; J1100; J1790; J1885; J2405; J3010